=== PATIENT | male | born 1985 | race Caucasian/White ===

== ENCOUNTER 2019-08-04 09:36 | Emergency (ER) | payer SELFPAY ==
[2019-08-04 09:37] VITALS: BP 141/90; PULSE 76; RESP 16; TEMP 36.8; O2SAT 97; BMI 26.6
--- NOTE | 2019-08-04 09:48 | CT_ITS ---
STUDY: CT ABDOMEN AND PELVIS WITH CONTRAST REASON FOR EXAM: Male, 33 years old. Status post right inguinal hernia repair x1 month ago. Hematoma at surgical site. Right lower quadrant pain. RADIATION DOSAGE (If Supplied By Facility): CTDIvol = ( 16.31 ) mGy, DLP = ( 983.97 ) mGycm TECHNIQUE: Transaxial images were obtained from the dome of the diaphragm to the symphysis pubis with oral contrast. 100CC IV/Oral Isovue 300 was administered. Sagittal and coronal images were reconstructed. Individualized dose optimization techniques were used for this CT. COMPARISON: None. FINDINGS: Pectus excavatum deformity. The lung bases are normal. The visualized portions of the heart are within normal limits. Mild diffuse fatty infiltration of the liver. Normal gallbladder and extrahepatic biliary system. Borderline splenomegaly measuring 13 cm long. Normal pancreas. Normal bilateral adrenal glands. Normal right kidney. Normal left kidney. Normal visualized stomach. Normal small intestine. Normal colon. The appendix is visualized and appears normal. Normal abdominal aorta. Normal inferior vena cava. Very few tiny lymph nodes in the left retroperitoneum are benign reactive nodes. Normal urinary bladder. Irregular soft tissue density in the right inguinal region mixed with hypodense fluid may be postoperative changes. This is adjacent to hydrocele of the scrotal sac. Normal osseous structures. CT/Abdomen/Pelvis WITH Contrast IMPRESSION: 1. Mild diffuse hepatic steatosis. 2. Borderline splenomegaly measuring 13 cm long. 3. Very few tiny lymph nodes in the left retroperitoneum are benign reactive nodes. 4. Irregular soft tissue density mixed with hypodense fluid in the right groin area and adjacent to hydrocele of the scrotal sac. I am uncertain if these are purely postop changes. Comparison with previous CT of the pelvis will help determine interval changes. Electronically Signed: Richard Coats MD at 13:20 EDT , Service support ,
[2019-08-04] MEDS: 0.9% Normal Saline 1,000 ML 1000 ML IV (09:57)
[2019-08-04] MEDS: Morphine 4 MG/ML Syringe IV (09:57)
[2019-08-04] MEDS: Ondansetron 4 MG/2 ML Vial IV (09:58)
[2019-08-04 10:01] LABS: Absolute Lymphocyte Count 2.82 X10^3/uL (0.83-4.51); Absolute Neutrophil Count 3.4 X10^3/uL (2.0-7.7); Basophil# 0.07 X10^3/uL; Eosinophil# 0.21 X10^3/uL; Eosinophils% 2.9 % (0-5); Hematocrit 47.5 % (40-54); Hemoglobin 15.9 g/dL (13.0-16.5); Lymphocyte # 2.82 X10^3/ul (4.0); Lymphocyte % 38.6 % (19-41); Mean Corp Hgb Conc 33.5 g/dL (32-36); Mean Corpuscular Hgb 29.3 pg (27.0-32.0); Mean Corpuscular Volume 87.5 fL (80-94); Mean Platelet Vol. 9.5 fl (6.2-12.0); Monocyte# 0.72 X10^3/uL; Monocyte% 9.8 % (0-10); NRBC Flagged by Analyzer 0 % (0-5); Neutrophil # 3.43 X10^3/uL (2.7-7.7); Neutrophil % 46.9 % (47-70); Platelet Count 251 K/mm3 (150-450); RBC Distribution Width CV 13.2 % (11.6-14.6); RBC Distribution Width SD 42.1 fl (35.1-43.9); Red Blood Count 5.43 M/mm3 (4.6-6.2); White Blood Count 7.3 K/mm3 (4.4-11.0)
[2019-08-04 10:06] LABS: Mucous, Urine 0 SEEN /hpf (<or=2+); Red Blood Cells-Urine 0 SEEN /hpf (0-5); Squamous Epithelial Cells - UA 0 SEEN /hpf (0-5)
[2019-08-04 10:11] LABS: Color, Urine Yellow (Yellow); Glucose, Dipstick Normal (Normal); Ketone-Dipstick Negative (Negative); Leukocyte Esterase-Dipstick 25 /ul (Negative); Nitrite-Dipstick Negative (Negative); Occult Blood-Urine Negative /ul (Negative); Protein-Dipstick 15 mg/dl (Negative); Urine Bilirubin Dipstick Negative (Negative); Urine Clarity Cloudy (Clear); Urine Urobilinogen Normal (Normal)
[2019-08-04 10:16] LABS: White Blood Cells 0-5 SEEN /hpf (0-5)
[2019-08-04 10:17] LABS: Amorphous Sediment 1+; Bacteria 2+ /hpf (None Seen)
[2019-08-04 10:19] LABS: AST(SGOT) 29 U/L (15-37); Alanine Aminotransfer ALT/SGPT 44 U/L (16-61); Albumin, Serum 4.1 g/dL (3.2-5.0); Alkaline Phosphatase 102 U/L (45-117); Anion Gap 6 (5-15); BUN 15 mg/dL (7-18); Calcium,Total 8.3 mg/dL (8.5-10.1); Chloride 107 mmol/L (98-107); Creatinine, Serum 0.94 mg/dL (0.70-1.30); EST Glomerular Filtration Rate 97 mL/min (>60); Est Glom Filt Rate - Afr Amer 118 mL/min (>60); Estimated Creatinine Clearance 95.41 ml/min; Globulin 4.2 g/dL (2.2-4.2); Glucose 113 mg/dL (74-106); Lipase 231 U/L (73-393); Potassium 3.9 mmol/L (3.5-5.1); Protein, Total 8.3 g/dL (6.4-8.2); Sodium Level 139 mmol/L (136-145)
[2019-08-04 12:00] VITALS: BP 144/96; PULSE 61; RESP 16; O2SAT 96
--- NOTE | 2019-08-04 14:31 | ED.DCSUM_ITS ---
- ER Visit Summary Date of Service: 08/04/19 Chief Complaint: Pain History of Present Illness: The patient is a 33 M with right lower quadrant pain for days. Patient had a hernia repair just over a month ago by Dr. Palumbo. He was told he had a hematoma and that was why he was having some postoperative pain. Pain is worse with bowel movements, cough, and sneezing. Denies any other GI symptoms. Denies urinary symptoms. Physical Examination: Afebrile and vital signs unremarkable. Heart regular. Lungs clear. Right lower quadrant tender to palpation. No guarding or rebound. Skin appears normal. Test Results: CBC, CMP, lipase, urinalysis unremarkable. CT showed hepatic steatosis, splenomegaly, reactive lymph nodes, and a soft tissue density adjacent to the right scrotal sac. Emergency Department Course and Treatment: Patient was treated with fluids, morphine, and Zofran. CT and laboratory testing as above. Everything was fairly unremarkable except for the CT. This was reviewed with Dr. Luna. He felt this was likely a postoperative hematoma or part of the plug from the operation. He advised outpatient follow-up with Dr. Palumbo. Patient was given a short course of pain medicine and will call Tuesday for follow-up. Return for any new or worsening issues. Treatment Plan: As above Disposition: Discharge Impression: 1. Right lower quadrant pain This note was generated with [employer] dictation software. It may contain incorrect words, spelling, and punctuation that were not noted in review of the chart prior to signing ED Disposition - Plan for ED Patient: Referrals: Care Physician,No Primary [Primary Care Provider] -
--- NOTE | 2019-08-04 14:34 | DCINST.ED_ITS ---
ED Disposition - Plan for ED Patient: Instructions: ABDOMINAL PAIN, Unkown Cause, (Male) Prescriptions: Hydrocodone Bitart/Apap 5-325 [[place] 5MG-325MG] 1 tab PO Q6H PRN PRN 3 Days #12 tab PRN Reason: Pain Prescription Printed Referrals: Gabbi Palumbo MD [STAFF PHYSICIAN] -
[2019-08-04 15:27] VITALS: PULSE 76; RESP 16; O2SAT 98
== END 2019-08-04 15:27 | disposition home or self-care (01) ==
LOC: ED 10:17
PROVIDERS: Emergency Provider Emergency Medicine
DX: R10.31 Right lower quadrant pain (principal); K76.0 Fatty (change of) liver, not elsewhere classified; R16.1 Splenomegaly, not elsewhere classified; Z72.0 Tobacco use
CPT/HCPCS: 74177; 80053; 81001; 83690; 85025; 96361; 96374; 96375; 99283; J7030; Q9967; A4216; J2405

== ENCOUNTER 2023-12-30 06:31 | Day surgery (SDC) | payer BC, SELFPAY ==
[2023-12-27 10:57] LABS: Magnesium 2.4 mg/dL (1.6-2.6)
[2023-12-30] VITALS (8 sets, daily range): BP systolic 119–143; BP diastolic 70–96; PULSE 73–84; RESP 14–16; TEMP 36.2–36.7; O2SAT 94–100; BMI 29.0
--- OUTSIDE RECORDS SUMMARY | 2023-12-30 06:47 | XMS RPT_ITS | CCD ---
Author Name Unknown Address [id number] [place] [address] Organization [facility] Care Team Providers Care Senior Database Administrator Name Role Phone Denny Jaime Unavailable Unavailable Denny Jaime Unavailable Unavailable GREGORY MOTA Unavailable Unavailable PHYSICIAN, NONE Unavailable Unavailable Magali Urena Unavailable Unavailable Davy Vee Unavailable Unavailable Unavailable Davy Vee Unavailable Gaston Ayers Unavailable Unavailable Lionel Morales Unavailable Unavailable Dayo Davies Unavailable Unavailable Magali Coles Unavailable Davy Vee PA-C Primary Care Provider Mr. Davy Vee Primary Care Unavail able Nanda, Davysalima Hurtado Attending Unavail able Nanda, Mr. Rodriguezsalima Hurtado Referring Unavail able DEYA HOGUE., SETH Referring Unavailable DEYA HOGUE., SETH Attending Unavailable DAVY VEE Primary Care Unavailable Davy Vee PA-C Primary Care Provider DAVY VEE Primary Care Unavailable EDYA HOGUE., SETH Attending Unavailable DAVY VEE Primary Care Unavailable DEYA HOGUE., SETH Referring Unavailable DEYA ., SETH Admitting Unavailable DAVY VEE Primary Care Unavailable DEYA HOGUE., SETH Attending Unavailable DAVY VEE Primary Care Unavailable DAVY VEE Attending Unavailable Dr. Gaston Ayers Attending Unavaila ble Davy Vee Primary Care Unavailable Unavailable Primary Care Provider Unavailsalena e SELF Referring Unavailable CAMI FORDE Attending UnavailFLORENCIA Burns Attending Unavailable FLORENCIA GONZALEZ Primary Care Unavailable FLORENCIA GONZALEZ Admitting Unavailable FLORENCIA GONZALEZ Attending Unavailable FLORENCIA GONZALEZ Primary Care Unavailable FLORENCIA GONZALEZ Admitting Unavailable Medications Current Medications Medication Drug Class(es) Dates Sig (Normalized) Sig (Original) acetaminophen 32 mg/ml oral solution (3 sources) take 15 mg by mouth every four hours as needed for fever acetaminophen (TYLENOL) 160 mg/5 mL solution Take 15 mg/kg by mouth every 4 (four) hours as needed for fever . 0 Active ibuprofen 200 mg oral tablet (3 sources) Nonsteroidal Anti-inflammatory Drug take 1 tablet by mouth every six hours as needed for pain ibuprofen (ADVIL,MOTRIN) 200 MG tablet Take 1 (one) tablet (200 mg total) by mouth every 6 (six) hours as needed for pain . 0 Active methylPREDNISolone (1 source) Corticosteroid Start: 2 End: 2 methylPREDNISolone (MEDROL DOSEPACK) 4 mg tablet Follow package directions . 21 tablet 0 10/06/2022 10/12/2022 Active Completed/Discontinued Medications Medication Drug Class(es) Dates Sig (Normalized) Sig (Original) acetaminophen 325 mg / oxyCODONE hydrochloride 5 mg oral tablet (6 sources) Opioid Agonist Start: 07-04-2021 oxyCODONE-Acetamin ophen 5-325 MG Oral Tablet Quantity: 9 Refills: 0 Ordered: 04-Jul-2021 DO Start : 04-Jul-2021 Active Problems Active Problems Problem Classification Problem Date Documented Da te Episodic/Chronic Abdominal pain (2 sources) Abdominal pain 07-04-2021 Episodic Past or Other Problems Problem Classification Problem Date Documented Da te Episodic/Chronic E Codes: Fall (1 source) Fall (on) (from) unspecified stairs and steps, initial encounter; Translations: [Fall (on) (from) unspecified stairs and steps, init encntr] Onset: 09-29-2022 Episodic Other connective tissue disease (3 sources) Pain in left foot; Translations: [Pain in left foot] Onset: 09-29-2022 Episodic Other non-traumatic joint disorders (1 source) Pain in left ankle and joints of left foot; Translations: [Pain in left ankle] Onset: 09-29-2022 Episodic Sprains and strains (8 sources) Strain of muscle of upper limb; Translations: [Sprain of wrist, unspecified site] Onset: 09-29-2022 06-12-2021 Episodic Results Test Name Value Interpretation Reference Range Facil ity Vital Signs Date Time Vital Sign Value Performing Clinician Kendra bergman 10-20-2022 08:01-0500 Diastolic blood pressure 87 mm[Hg] Seth Morfin Jr., DPM Work Phone: [facility] 10-20-2022 08:01-0500 Heart rate 85 /min Seth Morfin Jr., DPM Work Phone: [facility] 10-20-2022 08:01-0500 Systolic blood pressure 133 mm[Hg] Seth Morfin Jr., DPM Work Phone: [facility] 10-20-2022 07:56-0500 Body temperature 98.1 [degF] Seth Morfin Jr., DPM Work Phone: [facility] 10-06-2022 08:33-0500 Diastolic blood pressure 99 mm[Hg] Seth Morfin Jr., DPM Work Phone: [facility] 10-06-2022 08:33-0500 Heart rate 76 /min Seth Morfin Jr., DPM Work Phone: [facility] 10-06-2022 08:33-0500 Systolic blood pressure 148 mm[Hg] Seth Morfin Jr., DPM Work Phone: [facility] 10-06-2022 08:26-0500 Body temperature 98.6 [degF] Seth Morfin Jr., DPM Work Phone: [facility] 09-30-2022 08:57-0500 Body height 165.1 cm Seth Morfin Jr., DPM Work Phone: [facility] 09-30-2022 08:57-0500 Body mass index (BMI) [Ratio] 29.79 kg/m2 Seth Morfin Jr., DPM Work Phone: [facility] 09-30-2022 08:57-0500 Body temperature 97.7 [degF] Seth Morfin Jr., DPM Work Phone: [facility] 09-30-2022 08:57-0500 Body weight 81.19 kg Seth Morfin Jr., DPM Work Phone: [facility] 09-30-2022 08:57-0500 Diastolic blood pressure 91 mm[Hg] Seth Morfin Jr., DPM Work Phone: [facility] Encounters Encounter Date Encounter Type Care Provider Facility Start: 11-18-2023 End: 11-18-2023 ambulatory [facility] Start: 10-20-2023 End: 10-20-2023 ambulatory [facility] Start: 10-20-2023 End: 10-20-2023 Encounter for general adult medical examination without abnormal findings [facility] Start: 05-30-2023 End: 05-30-2023 ambulatory SELF Facility:[facility] Start: 05-30-2023 End: 05-30-2023 Patient encounter procedure Cami Forde OD Work Phone: Optometry Procedures Date Procedure Procedure Detail Performing Clinician Start: 10-06-2022 NURSING COMMUNICATIO N - DO NOT USE IN ORDER SETS Seth Morfin DPM Work Phone: Laparoscopic cholecystectomy Davy Vee Work Phone: Plan of Treatment Date Care Activity Detail Author Start: 07-22-2023 Influenza vaccination INFLUENZA (#1) [facility] Start: 11-21-2022 DEPRESSION ASSESSMENT DEPRESSION ASSESSMENT [facility] Start: 10-20-2022 End: 10-20-2022 Patient encounter procedure 10/20/2022 Office Visit Podiatry Seth Morfin Jr., DPM [address] [place] [address] [facility] Start: 10-06-2022 End: 10-06-2022 Patient encounter procedure 10/06/2022 Office Visit Podiatry Seth Morfin Jr., DPM [address] [place] [address] [facility] Physician [facility] Start: 07-22-2022 Influenza vaccination Sequential Influenza Vaccine (#1) [facility] Start: 06-17-2022 FUV, Provider: Davy Vee, Status: Pen, Time: 9:30 AM FUV, Provider: Davy Vee, Status: Pen, Time: 9:30 AM [facility] Work Phone: Start: 06-17-2022 Patient encounter procedure Outpatient [facility] Start: 17-Jun-2022 9:30 Davy Vee Intent [facility] Start: 09-23-2021 COVID-19 Vaccine (3 - Booster for Moderna series) COVID-19 Vaccine (3 - Booster for Moderna series) [facility] Start: 09-23-2021 COVID-19 VACCINE (3 - Moderna series) COVID-19 VACCINE (3 - Moderna series) [facility] Start: 07-21-2021 Patient encounter procedure [facility] [place] Start: 07-21-2021 POV, Provider: Magali Coles, Status: Pen, Time: 8:45 AM POV, Provider: Magali Coles, Status: Pen, Time: 8:45 AM [facility] Work Phone: Start: 07-15-2021 FUV, Provider: Lionel Morales, Status: Pen, Time: 1:20 PM FUV, Provider: Lionel Morales, Status: Pen, Time: 1:20 PM [facility] [address] Work Phone: Start: 07-15-2021 Patient encounter [facility] Start: 07-04-2021 End: 07-05-2022 Sodium Chloride 0.9% Injectable Flush Peripheral Line ; via Peripheral LineVolume = 1.5 mL IntraVenous Flush Every 8 Hours and as Needed Start: 04-Jul-2021 End: 04-Jul-2022 Ordered: 04-Jul-2021 Gaston Ayers [facility] Start: 2018 LIPID SCREEN LIPID SCREEN [facility] Start: 2002 Urine microalbumin profile DTAP,TDAP,TD (1 - Tdap) [facility] Start: 2001 Hepatitis C screening Hepatitis C Screening [facility] Start: 2001 HEPATITIS C SCREENING HEPATITIS C SCREENING [facility] Start: 2001 HIV SCREENING HIV SCREENING [facility] Start: 1998 HIV screening HIV Screening [facility] Start: 1995 Depression screening using PHQ-9 (Patient Health Questionnaire 9) score Depression Screening (PHQ-2/9) [facility] Start: 1989 PNEUMOCOCCAL (1 - PCV) PNEUMOCOCCAL (1 - PCV) [facility] Start: 1989 Pneumococcal Vaccine: Ped or At-Risk (1 - PCV) Pneumococcal Vaccine: Ped or At-Risk (1 - PCV) [facility] Start: 1986 History and physical examination, annual for health maintenance Wellness Visit [facility] Start: 1983 HEPATITIS B (1 of 3 - 3-dose series) HEPATITIS B (1 of 3 - 3-dose series) [facility] Start: 1983 Tetanus vaccination Tetanus: Every 10yrs [facility] History of arthrosco pic procedure on shoulder History of arthroscopy of shoulder [facility] History of hernia repair History of hernia repair [facility] Payers Date Payer Category Payer Unknown 2023 Unknown [id number] 2018 Unknown [id number] 1983 Unknown [id number] [id number] 1983 Unknown [id number] 2.16. [id number] 1983 Unknown [id number] 2.16. [id number] 1983 Unknown [id number] 2.16. [id number] 1983 Unknown [id number] 2.16. [id number] 1983 Unknown [id number] 2.16. [id number] 1983 Unknown [id number] 2.16. [id number] 1983 Unknown [id number] 2.16.8 [id number] 1983 Unknown [id number] 2.16.8 [id number] 1983 Unknown [id number] 2.16.8 [id number] Unknown [id number] Social History Date Type Detail Facility [facility] Tobacco smoking consumption unknown [facility] Start: 10-28-2020 End: 05-30-2023 Current smoker Current smoker [facility] Start: 07-18-2021 End: 10-01-2022 Smokes tobacco daily [facility] History of tobacco use Cigarette Smoker [facility] Start: 1983 Sex Assigned At Not on file [facility] Start: 09-26-2022 End: 10-20-2022 Exposure to SARS-CoV-2 (event) Not sure [facility] Start: 05-30-2023 Tobacco smoking status NHIS Occasional tobacco smoker [facility] Start: 05-30-2023 Tobacco use and exposure Smokeless tobacco non-user [facility] Start: 05-30-2023 Alcohol intake Lifetime non-drinker (finding) [facility] Start: 06-20-2019 End: 10-28-2020 Alcohol Use Disorder Identification Test - Consumption [AUDIT-C] [facility] How often to you hav e a drink containing alcohol? Never [facility] Average Number of Drinks Not on file [facility] Start: 1985 Sex Assigned At Male [facility] Start: 06-15-2019 Gender identity Identifies as male gender (finding) [facility] Start: 06-15-2019 Sexual orientation Heterosexual (finding) [facility] Medical Equipment Procedure Code Equipment Code Equipment Origin al Text Equipment Identifier Dates Mesh 3dmax Large Polypropylene 6x4in Surgical Nonabsorbable Patch Preform - [id number] Start: 06-26-2019 Clinical Notes 06-11-2021 to 05-30-2023 Patient InstructionsCoCami terrell OD - 05/30/2023 2:49 PM EDTSeth Morfin Jr., DPM - 10/20/2022 8:28 AM ESTSeth Morfin Jr., DPM - 10/06/2022 8:58 AM ESTPatient Instructions Note Date & Type Note Facility 05-30-2023 Note HNO ID: [id number] Author: Cami Forde OD Service: ? Author Type: DOUBLE NEEDLE STITCHER Type: Progress Notes Filed: 05/30/2023 2:51 PM Note Text: ASSESSMENT/PLAN: 1. Myopia, bilateral - ICD9: 367.1, ICD10: H52.13 (primary diagnosis) 2. 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 Normal ocular health noted at this visit. Recommended yearly exams. Cami Forde, JO-ANN I have confirmed and edited as necessary the relevant ophthalmic history, ROS, and the neuro exam findings as obtained by others. [facility] 05-30-2023 Instructions Cami Forde, JO-ANN - 05/30/2023 2:50 PM EDT ASSESSMENT/PLAN: 1. Myopia, bilateral - ICD9: 367.1, ICD10: H52.13 (primary diagnosis) 2. 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 Normal ocular health noted at this visit. Recommended yearly exams. documented in this encounter [facility] 05-30-2023 History of Present illness Narrative ASSESSMENT/PLAN: 1. Myopia, bilateral - ICD9: 367.1, ICD10: H52.13 (primary diagnosis) 2. 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 Normal ocular health noted at this visit. Recommended yearly exams. Cami Forde, OD I have confirmed and edited as necessary the relevant ophthalmic history, ROS, and the neuro exam findings as obtained by others. documented in this encounter [facility] 10-20-2022 History of Present illness Narrative Ankle sprain. Patient is a pleasant 37-year-old male following up today from his ankle sprain injury. States in the last few weeks he is done excellent. Did great with his Medrol Dosepak his ankle is no longer painful. Today does complain of soreness to the TN and dorsal midfoot. States it is painful when his shoes are pressing on his joint otherwise not painful while no pressure was present. Physical Vascular: DP PT pulses are easily palpable 2-4. CFT is fair no edema. Derm: No erythema no open wounds no ulcers no rashes. Neuro: Light touch is normal Babinski's is normal. Musculoskeletal: Does have some pain to the TN joint and navicular cuneiform joint past the first ray. No hypermobility of the site pain is with compression otherwise not present. No catching or clicking. No ATFL pain today ankle subtalar is full and pain-free. Assessment and plan: Patient is a pleasant 37-year-old male with substantially improved and healed ankle sprain and chronic midfoot arthritis. -During his ankle sprain, nothing else to do as this is healed. Regarding his midfoot arthritis, the Including steroid injection with dexamethasone would like to at least hold off. We recommend he first get laces across that joint to try to decrease the burden and the pressure. Follow-up if no better for dorsal midfoot injection. documented in this encounter [facility] 10-06-2022 History of Present illness Narrative HPI Chief Complaint Patient presents with Foot Injury Referral from Dr. Lara for left foot sprain. Pt states he went down stairs to quickly. Pt states he feels pain all over and describes it being an electric feeling. Pt states pain is primarily medial top side of foot/ ankle area. Pt states no injury related that he sometimes has to walk with left toes curled due to pain along bottom of foot and has lump on top of left foot. Patient shira 37-year-old male who comes in today with a 1 week history of left foot trauma. States looked at home down 1 step twisting tweaking his left foot. Has been quite sore since then despite taking Advil and Tylenol. He was in an ankle brace to try to stabilize his ankle and also shoe to assist. States that it still fairly sore painful interval. 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 Past Medical History: Diagnosis Date Left wrist injury Past Surgical History: Procedure Laterality Date CHOLECYSTECTOMY HERNIA REPAIR ROTATOR CUFF REPAIR Social History Socioeconomic History Marital status: Single Tobacco Use Smoking status: Every Day Types: Cigarettes Review of Systems Constitutional: Negative for chills and fever. Respiratory: Negative for shortness of breath and wheezing. Cardiovascular: Negative for chest pain and palpitations. Gastrointestinal: Negative for diarrhea and vomiting. Musculoskeletal: Positive for gait problem and joint swelling. Skin: Negative for wound. Physical Exam -Patient is a shira 37-year-old who comes in today with foot trauma. Patient is AOx3. Linear thought process. Vascular: DP PT pulses are easily palpable 2 out of 4. CFT is normal mild midfoot edema. Derm: No erythema no open wounds no rashes no deep nodules. Neuro: Light touch is normal Babinski's is normal. Musculoskeletal: Does have pain globally to the medial aspect of his midfoot from his Lisfranc's joint proximally to his TN joint. Power is good to his plantar flexors dorsal inverters and everters. Updated x-rays taken, no obvious fractures dislocations or subluxations. Impression/Plan Problem List Items Addressed This Visit None Visit Diagnoses Sprain of left foot, initial encounter - Primary Relevant Orders Cam Walker Patient is a shira 37-year-old male with left midfoot sprain Can start an oral Medrol Dosepak 4 mg tomorrow and cam boot for ambulation. The cam boot is medically necessary for the next 2-4 weeks. Patient was ambulatory prior to this incident and is expected to regain ambulatory status after complete healing of injury. -At work, restrictions other than wearing his cam boot. Follow-up in 2 to 4 weeks evaluate. -low medical complexity decision documented in this encounter [facility] 10-06-2022 Instructions Seth Morfin Jr., DPM - 10/06/2022 8:55 AM EST F/u 2 weeks -Needs to wear cam boot during the day at work at least the next 2 weeks. Other than wearing the boot at work, no restrictions present. documented in this encounter [facility] 10-01-2022 History of Present illness Narrative Referral from , Davy Vee. Sprain of left foot. Patient tripped fell a couple steps backward. Twisting/rolling ankle. Patient was given crutches that they did not use. Complains of discomfort and discoloration on top of left foot. Patient states if feels like pins and needles shooting up the foot with ambulation. Patient alternating tylenol and ibuprofen. X-rays taken at ED 09/29/2022. . Patient given light duty note for work. Told to continue with brace, cane or crutches. Ice and elevate when possible. documented in this encounter [facility] 07-09-2021 History of Present illness Narrative Mr. Duarte is a 35-year-old male seen in postoperative follow-up from a laparoscopic cholecystectomy on 07/09/2021. He had a small umbilical port site hematoma. He has been having some persistent pain and a little bit of bloody drainage from that site, particularly when he went fishing over the weekend. He was evaluated for this in the emergency department 2 days ago. He has no fever, or redness at this incision and no sign of infection. He is otherwise doing well. The right upper quadrant pain that he was having preoperatively is now completely resolved. He has some loose bowel movements, but this is unchanged from preop. [facility] Work Phone: 06-28-2021 History of Present illness Narrative Patient is a pleasant 35-year-old wjiyq-hstm-vvztqsif male presenting for follow-up of left wrist injury. Initial visit with hi approximately 3 weeks ago, injury occurred approximately 5 weeks ago. Injury occurred after falling off a chair trimming hedges, landing on outstretched hand. X-rays negative in urgent care, he was treated with removable wrist splint. At our initial visit he was having some ongoing discomfort at the ulnar aspect of his wrist with palpable click, there was concern for an acute TFCC injury. We opted for rigid immobilization in a short arm fracture brace for the past 3 weeks. He has been compliant with this. He states that his ulnar wrist pain is resolved. He is still having some clicking but it is not bothersome. He has developed some new onset numbness over the dorsal aspect of his thumb which is intermittent in nature, no history of similar numbness in the past. [facility] [address] Work Phone: 06-27-2021 History of Present illness Narrative Patient is a pleasant 35-year-old [id number]-olptpbgk male presenting for follow-up of left wrist injury. Initial visit with hi approximately 3 weeks ago, injury occurred approximately 5 weeks ago. Injury occurred after falling off a chair trimming hedges, landing on outstretched hand. X-rays negative in urgent care, he was treated with removable wrist splint. At our initial visit he was having some ongoing discomfort at the ulnar aspect of his wrist with palpable click, there was concern for an acute TFCC injury. We opted for rigid immobilization in a short arm fracture brace for the past 3 weeks. He has been compliant with this. He states that his ulnar wrist pain is resolved. He is still having some clicking but it is not bothersome. He has developed some new onset numbness over the dorsal aspect of his thumb which is intermittent in nature, no history of similar numbness in the past. [facility] [address] Work Phone: 06-11-2021 History of Present illness Narrative Patient is a pleasant 35-year-old ocddz-hbep-zmgttpvh male presenting for evaluation of left wrist injury. Injury occurred approximately 2 weeks ago after falling off a chair while trimming hedges, landed on outstretched left hand/wrist, says that his wrist was ulnar deviated in the process. Had acute onset of pain following this, was seen in urgent care where x-rays of the wrist were obtained which were negative for fracture, was placed in a removable wrist splint. He did follow-up with a new PCP last week, Davy Vee, who placed referral to our office for further evaluation. He denies any significant swelling of the wrist now or immediately following the injury, pain most focal to the ulnar aspect of his wrist. He says that he has been wearing the splint since the injury occurred, has not noticed any significant improvement in symptoms. He says that range of motion is okay, minimal pain with flexion and extension but he has pain in popping/clicking of his wrist with ulnar and radial deviation with more notable discomfort. No numbness or tingling. No prior wrist problems. [facility] [address] Work Phone: [facility] Sprain of left foot, initial encounter- Primary Primary osteoarthritis of left foot documented in this encounter [facility] note* Diagnosis Myopia, bilateral- Primary Myopia Regular astigmatism, bilateral documented in this encounter [facility] Summary Purpose Family History No Family History Records FoundUnknown Family Member Name Dates Details Family history of hypertensi on: Mother(V17.49, Z82.49) Status:Active Unknown Family Member Name Dates Details Family history of hypertensi on: Mother(V17.49, Z82.49) Status:Active Unknown Family Member Name Dates Details Family history of hypertensi on: Mother(V17.49, Z82.49) Status:Active Unknown Family Member Name Dates Details Family history of hypertensi on: Mother(V17.49, Z82.49) Status:Active Unknown Family Member Name Dates Details Family history of hypertensi on: Mother(V17.49, Z82.49) Status:Active Advance Directives No Advanced Directives Records FoundNo Advanced Directives Records FoundNo Advanced Directives Records FoundNo Advanced Directives Records FoundNo Advanced Directives Records FoundNo Advanced Directives Records FoundNo Advanced Directives Records FoundNo Advanced Directives Records FoundNo Advanced Directives Records FoundNo Advanced Directives Records Found Chief Complaint PT HERE FOR LEFT WRIST INJURY. STATES FELL APPROX 2 WKS AGO LANDING ON WRIST. PAIN AND SWELLING. WEARING BRACE. XRAYS BEFORE. REFERRED BY DAVY VEE.3 WK F/U L WRIST INJURY3 WK F/U L WRIST INJURYs/p laparoscopic cholecystectomy Reason for Referral * Umbilical hemorrhage Medications Administered Section Inactive Administered Medications - up to 3 most recent administrations Medication Order MAR Action Action Date Dose Rate Site tropicamide 1 % 1 Drop (MYDRIACYL) 1 Drop, BOTH EYES, ONCE, 1 dose, On 05/30/23 at 1500, FOR THE EYE Given 05/30/2023 3:00 PM EDT 1 Drop Additional Source Comments (unrecognized sect ion and content) No Status Records FoundNo Status Records FoundNo Status Records FoundNo Status Records FoundNo Status Records FoundNo Status Records FoundNo Status Records FoundNo Status Records FoundNo Status Records FoundNo Status Records Found INFORMATION SOURCE (unrecogn ized section and content) DATE CREATED AUTHOR AUTHOR'S ORGANIZ ATION 09/26/2018 [facility] ([place]) DATE CREATED AUTHOR AUTHOR'S ORGANIZ ATION 08/24/2019 [facility] DATE CREATED AUTHOR AUTHOR'S ORGANIZ ATION 10/01/2022 [facility] DATE CREATED AUTHOR AUTHOR'S ORGANIZ ATION 10/01/2022 [facility] DATE CREATED AUTHOR AUTHOR'S ORGANIZ ATION 10/06/2022 [facility] DATE CREATED AUTHOR AUTHOR'S ORGANIZ ATION 10/20/2022 [facility] DATE CREATED AUTHOR AUTHOR'S ORGANIZ ATION 02/22/2023 [facility] DATE CREATED AUTHOR AUTHOR'S ORGANIZ ATION 05/31/2023 [facility] DATE CREATED AUTHOR AUTHOR'S ORGANIZ ATION 11/22/2023 Zack Robles [facility] <item><item><item><item> Privacy Markings (unrecogniz ed section and content) Section Author: Lizette Cohen PROHIBITION ON REDISCLOSURE OF CONFIDENTIAL INFORMATION This notice accompanies a disclosure of information concerning a client made to you with the consent of such client. Section Author: Lizette Cohen PROHIBITION ON REDISCLOSURE OF CONFIDENTIAL INFORMATION This notice accompanies a disclosure of information concerning a client made to you with the consent of such client. Section Author: Lizette Cohen PROHIBITION ON REDISCLOSURE OF CONFIDENTIAL INFORMATION This notice accompanies a disclosure of information concerning a client made to you with the consent of such client. Section Author: Lizette Cohen PROHIBITION ON REDISCLOSURE OF CONFIDENTIAL INFORMATION This notice accompanies a disclosure of information concerning a client made to you with the consent of such client. Care Teams (unrecognized sec tion and content) Senior Database Administrator Relationship Specialty Start Date End Date Newtammi Davy Hurtado PA-C [address] [place] [address] PCP - General Physician Manager [employer] Collections 10/01/22 Senior Database Administrator Relationship Specialty Start Date End Date Ravindratammi Davy Hurtado PA-C [address] [place] [address] PCP - General Physician Manager [employer] 10/01/22 Reason for Visit (unrecogniz ed section and content) Reason Comments Follow-up Follow up referral l eft foot sprain. States it is feeling better but lump is causing him problems. Reason Comments Yearly Exam Source Comments (unrecognize d section and content) In the event this informatio n is protected by the Federal Confidentiality of Alcohol and Drug Abuse Patient Records regulations: The Federal rules restrict any use of the information to criminally investigate or prosecute any alcohol or drug abuse patient.[facility] FOR RECORDS PERTAINING TO PATIENTS WHO ARE OR HAVE BEEN ENROLLED IN A CHEMICAL DEPENDENCY/SUBSTANCEABUSE PROGRAM, SOME INFORMATION MAY BE OMITTED. This clinical summary was aggregated from multiple sources. Caution should be exercised in using it in the provision of clinical care. This summary normalizes information from multiple sources, and as a consequence, information in this document may materially change the coding, format and clinical context of patient data. In addition, data may be omitted in some cases. CLINICAL DECISIONS SHOULD BE BASED ON THE PRIMARY CLINICAL RECORDS. [employer] provides no warranty or guarantee of the accuracy or completeness of information in this document.
[2023-12-30 07:24] LABS: Bedside Glucose 93 mg/dL (74-106)
[2023-12-30] MEDS: Lactated Ringers 1,000 ML 15 ML IV ×2 (07:24→11:50)
[2023-12-30] MEDS: Magnesium 1 GM over 15 mins IV (07:24)
[2023-12-30] MEDS: Gabapentin 600 MG Tablet PO (07:29)
[2023-12-30] MEDS: Acetaminophen 500 MG Tablet 1000 MG PO (07:29)
--- NOTE | 2023-12-30 08:46 | PCM.OPRPT ---
Problems Associated Problem List Diagnoses (1) Osteochondritis dissecans of left foot: (2) Pain in left foot: (3) Short Achilles tendon of left lower extremity: (4) Other acute postprocedural pain: (5) Achilles tendinitis, left leg: Report of Operation Date of Procedure: 12/30/23 Pre-Operative Diagnosis: 1. Osteochondral dissecans, first metatarsal, left foot 2. Short Achilles tendon, left lower extremity 3. Pain, left foot Post-Operative Diagnosis: 1. Osteochondral dissecans, first metatarsal, left foot 2. Short Achilles tendon, left lower extremity 3. Pain, left foot Surgery/Procedure Performed:: 1. Partial excision of bone, first metatarsal, left foot 2. [place] of calcaneal bone graft, left foot 3. Endoscopic gastroc recession, left lower extremity 4. [place] of bone marrow aspirate concentrate, left lower extremity Description of Surgical Findings:: 1. Evidence of soft bone defect consistent with osteochondral dissecans to the lateral aspect of the first metatarsal head, left foot 2. Incidental finding of loss of articular cartilage appreciated to the first metatarsal head which was repaired via microfracturing with backfilling of bio cartilage, PRP and autograft. 3. Release of gastroc anemias aponeurosis allowed for a better range of motion to the left lower extremity ankle. Surgeon: Keyon Bhardwaj agent contract clerk: Julio Cullen Type of Anesthesia: General/Regional Anesthesiologist: Que Blank Special Medications: Per anesthesia Specimen's removed: None Drains: None Estimated Blood Loss (mL): 15 mL Fluids Replaced: Per anesthesia Description of Procedure: Indications For Operation: Mr. Cordova is a 38-year-old male who was admitted to [facility] for elective left lower extremity surgery secondary to pain to the left foot and ankle. Patient was seen in private office where we had undergone conservative treatment for pain to the first metatarsophalangeal joint of the left lower extremity. After failure conservative treatment the patient underwent MRI which showed evidence of an OCD to the lateral aspect of the first metatarsal head. MRI and physical exam findings were consistent with the patient's presentation. Patient was seen in private office for surgical consultation with all risk and benefits discussed with the patient in great detail, thus moving forward with elective foot and ankle surgery to left lower extremity. Due to the size of the patient's OCD and pain to the left lower extremity edema necessary at this time to take the patient to the operating room to perform the above procedure to help heal the patient's bone and relieve his constant pain. The nature of the problem, anticipated procedures, postop recovery/convalences and risk/complications include but not limited to infection, wound healing complications, digital amputation, hypertrophic scarring, numbness, tingling, chronic pain, CRPS, over and under correction, recurrence of deformity, DVT and or PE and the need for further surgery have been discussed in great detail with the patient. All questions have been answered to the patient's satisfaction. There are no guarantees given as to the outcome of the procedure. Description of Procedure: Under mild sedation, the patient was brought into the operating room and placed on the operating table in supine position. Once the patient was under general anesthesia with laryngeal mask airway. The patient received a left lower extremity popliteal block by anesthesia, please see anesthesia note for further detail. Next, a well-padded thigh tourniquet was applied to the left lower extremity. Next, the left lower extremity was prepped and draped in normal aseptic manner. Next, a timeout was then undertaken verifying the correct patient, extremity, visibility of preoperative markings, availability of the equipment. Procedure #1, bone marrow aspirate concentrate, left lower extremity Next attention was directed to the left lower extremity. Using a Jamshidi needle, the needle was inserted to the distal medial aspect of the tibia. Next once inserted using the Arthrex Tang system 20 cc of bone marrow aspirate was removed and passed the back table to be spun down. A second attempt to remove more bone marrow aspirate was moved to the calcaneus since the distal tibia location was causing a hematoma in the Jamshidi needle. Next, attention was directed to the lateral aspect of the calcaneus, the Jamshidi needle was inserted to the lateral calcaneus without incident. An additional 30 cc of bone marrow aspirate was removed from the left calcaneus without incident. The 30 cc of bone marrow aspirate concentrate was passed the back table to be sent off to the rep to be spun down for bone marrow aspirate and PRP. Procedure #2, harvest of calcaneal bone graft, left foot Next, attention was directed to the left lower extremity. Using a 4 inch Esmarch, left lower extremity was exsanguinated and elevated to 60 degrees for 1 minute.Next, attention was directed to the left lower extermity. Next, attention was directed to the lateral aspect of the left calcaneus. Using a #15 blade, a full-thickness incision, approximately 1 cm, was made down to bone without incident. Continued blunt dissection was carried out with curved hemostats. Using the Arthrex 6 mm osteoagar, calcaneal bone harvest less than than 5 cc was made, then removed from the calcaneus and passed the back table to be used later in the case, for the repair of the OCD of the first metatarsal procedure. The incision was flushed with copious arnaldo of normal saline. Procedure #3 endoscopic gastroc recession, left lower extremity A silfverskiold test was performed on the operating table. There was evidence of a positive Silfverskiold test for gastrocnemius equinus. Next, attention was directed to the aponeurosis of the gastrocnemius muscle. A small stab incision was placed approximately 2 to 3 cm from the gastroc insertion. Using the Arthrex lead vulcanizing operator the aponeurosis was bow strong and then advanced to the lateral aspect of the left lower extremity. Once tenting of the skin was identified a small stab incision was made with a 15 blade laterally. Using the Arthrex obturator and cannula, it was advanced through both incisions. Using the Arthrex mini scope there showed evidence of the aponeurosis of the gastrocnemius muscle. Using the rasp the muscle fibers/Sub Q were removed from the aponeurosis tissue. Using the Arthrex mini scope and hook blade, careful incision across the aponeurosis was made half laterally then half medially until released. After release of the aponeurosis the ankle was put through range of motion with the knee extended as well as flexed and showed to be increased past 90 in both positions. Both incisions were flushed with copious arnaldo of warm saline. Procedure #4, partial excision of bone, OCD repair, first metatarsal, left foot The next, attention was directed to the level of the first metatarsal phalangeal joint of the left foot. Using large C arm fluoroscopy, incision placement was marked out laterally to the first metatarsal phalangeal joint of the left foot. Using a sterile skin marker the incision placement was made just lateral to the extensor hallucis longus tendon of the first metatarsal phalangeal joint. Using a #15 blade, a partial skin incision was made down to subcutaneous tissue without incident. All crossing veins were cauterized with Bovie. Using a wet Ray-Gayle, the deep fascia was removed and lifted off from the subcutaneous tissue. Metzenbaum scissors were used for continued blunt dissection down to the level of the joint capsule. Next, using a #15 blade, a full-thickness incision over the first metatarsal phalangeal joint capsule was made, care was to retract the extensor hallucis longus tendon. Continued sharp dissection was carried down to the lateral aspect of the first metatarsophalangeal joint distal and proximally. No to be noted that there showed evidence of loss of approximately 20-30% of the articular cartilage of the first metatarsal head. Using TPX and a 0.062 K wire, the absent articular cartilage was fenestrated to allow regrowth of the articular cartilage. The area was flushed with copious arnaldo of normal saline. Next, attention was directed to the lateral aspect of the first metatarsal head that showed evidence of softening as well as OCD in the first metatarsal. Using a small curette, the soft bone at the level of the OCD to the lateral aspect of the first metatarsal head was partially excised and cored out. There showed evidence of a 0.5 x 0.5 x 0.5 cm defect. The incision was flushed with copious normal saline. The area was then dried. Using a combination of Arthrex bio cartilage, PRP, bone marrow aspirate concentrate and autograft from the heel, a slurry was made to be backfilled in all deficits to the first metatarsal head and lateral side. The concentrate was covered with fibrin glue. Once the fibrin glue showed to be gelatinous, the left lower extremity tourniquet was deflated and instant reperfusion was noted to the left lower extremity. Next all incisions except the first metatarsophalangeal joint incision was flushed with copious normal saline. The proximal medial lateral calf incisions were closed with 3-0 nylon in simple interrupted suture technique. The distal medial tibial incision was closed with 3-0 nylon in simple interrupted suture technique. The lateral calcaneus incision was closed with 3-0 nylon in simple interrupted suture technique. The incision over the first metatarsophalangeal joint was closed in layers, the capsule layer was closed with 3-0 Vicryl in running locking suture technique. The subcutaneous layer was closed with 3-0 Vicryl in running suture technique. The skin was reapproximated and closed with 3-0 nylon in simple interrupted suture technique. The left lower extremities were cleaned and patted dry. All incisions were covered with Betadine soaked Adaptic, 4 x 4's, dry sterile dressing and a double layer Vernon AO compression splint was applied to left lower extremity at 90 degrees. The patient tolerated the procedure and anesthesia well and apparent satisfactory condition and was transported to the PACU for further monitoring prior to discharge home. Vital signs stable and vascular status intact to all digits bilateral. Post Operative Plan: Weightbearing: Nonweightbearing to left lower extremity. Full weightbearing to the right lower extremity. Nonweightbearing to recess with crutches and/or knee scooter. Antibiotics: 2 g cefazolin through the IV DVT Prophylaxis: Aspirin 81 mg [place]ill: None Dressing: Betadine soaked Adaptic, dry sterile dressing and a double layer Vernon compression AO splint at 90 degrees. X-Rays: Post-operative films taken on the operating room. Pain Medication: Percocet 5/325, Flexeril 10 mg 3 times daily Follow-up: Patient will follow-up with Dr. Bhardwaj in private office 1 week post discharge. Grafts/Implants Used: Bio cartilage, PRP, autograft from calcaneus Complications None Admit VTE Documentation VTE Present on Admission: No VTE Mechan Device Prophylaxis: SCD's VTE Pharm Prophylaxis ordered?: Yes
[2023-12-30] MEDS: Cefazolin 2 GM in 0.9% Normal Saline (100mL Bag) 100 ML IV (09:00)
--- NOTE | 2023-12-30 09:15 | RAD_ITS ---
STUDY: X-RAY - LEFT FOOT CLINICAL: Male, 38 years old. Intraoperative digital documentation views of the first metatarsal partial excision. TECHNIQUE: 3 intraoperative digital view(s) of the foot. COMPARISON: None. FINDINGS: 3 intraoperative digital documentation. It is show localization device projected over the head of the first metatarsal. RAD/Foot min 3 Views IMPRESSION: Intraoperative digital documentation views as described. Electronically Signed: Jordan Mcintosh MD at 10:32 EST ,
[2023-12-30] MEDS: Oxycodone/Apap 5/325 Tablet PO (12:22)
== END 2023-12-30 12:30 | disposition home or self-care (01) ==
LOC: SDC 06:36 → AC 06:36
PROVIDERS: PCP Nurse Practitioner Family; Referring Provider Podiatrist Foot & Ankle Surgery; Visit Provider Podiatrist Foot & Ankle Surgery
PROC: (CPT 29999; principal; 2023-12-30 08:45)
DX: M93.272 Osteochondritis dissecans, left ankle and joints of left foot (principal); M76.62 Achilles tendinitis, left leg; M67.02 Short Achilles tendon (acquired), left ankle; I10 Essential (primary) hypertension; E78.5 Hyperlipidemia, unspecified; K21.9 Gastro-esophageal reflux disease without esophagitis; E66.9 Obesity, unspecified; F17.290 Nicotine dependence, other tobacco product, uncomplicated; F17.210 Nicotine dependence, cigarettes, uncomplicated; Z79.899 Other long term (current) drug therapy
CPT/HCPCS: 20900; 28899; 29999; 20999; 64445; 36415; 73630; 76000; 82962; 83735; 87077; 87081; 93005; J7120; J2405; J3475

== ENCOUNTER → 2024-02-15 | Outpatient (CLI) | payer BC, SELFPAY | END | disposition home or self-care (01) | PROVIDERS: PCP Nurse Practitioner Family; Visit Provider Podiatrist | DX: L97.522 Non-pressure chronic ulcer of other part of left foot with fat layer exposed (principal) | CPT/HCPCS: 87070; 87075; 87077; 87186; 87205 ==

== ENCOUNTER 2024-02-18 12:34 | Emergency (ER) | payer BC, SELFPAY ==
[2024-02-18 12:35] VITALS: BP 158/103; PULSE 90; RESP 16; TEMP 36.3; O2SAT 97; BMI 30.7
--- NOTE | 2024-02-18 13:30 | ED.VIS.LOWEX ---
HPI History of Present Illness Chief Complaint: Lower Extremity Injury Informant: patient Narrative Narrative: Patient has had right Achilles pain for the past 2 months. Has been following with podiatry, they think he has a partial tear and he is scheduled for an MRI within the next week or so, he had an Achilles tear on his left that was operated on in November and this has been bothering him ever since, unknown injury. Podiatry has been prescribing the medication. He is out of it and is needing more, as he states he is in a lot of pain. He states that podiatry does not want to prescribe him narcotics anymore until at least they get an MRI to verify what is going on, and so the patient presents here asking for oxycodone for pain. He denies any other new issues/symptoms. [facility] Medical History Arthritis Gastric reflux High cholesterol Hypertension Loose, teeth Migraine headache Smoker Wears glasses Home Medications atorvastatin 10 mg tablet 10 mg PO 1500 12/26/23 [History Last Taken 12/29/23] citalopram 10 mg tablet 10 mg PO 1500 12/26/23 [History Last Taken 12/29/23] diclofenac sodium 50 mg tablet,delayed release 50 mg PO 1500 12/26/23 [History Last Taken 12/29/23] famotidine 20 mg tablet 20 mg PO 1500 12/26/23 [History Last Taken 12/29/23] fluticasone propionate 50 mcg/actuation nasal spray,suspension 2 spray intranasal 149912/26/23 [History Last Taken Unknown] hydrochlorothiazide 25 mg tablet 25 mg PO 1500 12/26/23 [History Last Taken 12/29/23] lisinopril 20 mg tablet 20 mg PO 1500 12/26/23 [History Last Taken 12/29/23] meloxicam 15 mg tablet 15 mg PO 1500 12/26/23 [History Last Taken 12/29/23] omeprazole 40 mg capsule,delayed release 40 mg PO DAILY 12/26/23 [History Last Taken 12/29/23] topiramate 200 mg tablet 200 mg PO 1500 12/26/23 [History Last Taken 12/29/23] ascorbic acid (vitamin C) 1,000 mg tablet (Vitamin C) 1 g PO DAILY 90 days #90 tabs 12/30/23 [Rx Last Taken Unknown] aspirin 81 mg tablet,delayed release 81 mg PO DAILY 30 days #30 tabs 12/30/23 [Rx Last Taken Unknown] calcium carbonate 500 mg-vitamin D3 15 mcg (600 unit) tablet (Os-Ramone 500 + D3) 1 tab PO DAILY 90 days #90 tabs 12/30/23 [Rx Last Taken Unknown] cyclobenzaprine 10 mg tablet 10 mg PO TID muscle spasm 7 days #21 tabs 12/30/23 [Rx Last Taken Unknown] docusate sodium 100 mg capsule (Colace) 100 mg PO DAILY 10 days #10 caps 12/30/23 [Rx Last Taken Unknown] oxycodone-acetaminophen 5 mg-325 mg tablet (Endocet) 1 tab PO Q6H pain 7 days #28 tabs 12/30/23 [Rx Last Taken Unknown] cyclobenzaprine 10 mg tablet 10 mg PO TID muscle spasm 7 days #21 tabs 01/05/24 [Rx Last Taken Unknown] oxycodone-acetaminophen 5 mg-325 mg tablet (Endocet) 1 tab PO Q6H PRN pain 7 days #28 tabs 01/05/24 [Rx Last Taken Unknown] oxycodone-acetaminophen 5 mg-325 mg tablet (Endocet) 1 tab PO Q6H 7 days #28 tabs 01/13/24 [Rx Last Taken Unknown] oxycodone-acetaminophen 5 mg-325 mg tablet 1 tab PO Q6H PRN PRN Pain 3 days #12 TABLETS 02/18/24 [Rx Last Taken Unknown] Allergy/AdvReac Type Severity Reaction Status Date / Time No Known Allergies Allergy Verified 02/18/24 12:36 Surgical History (Updated 12/26/23 @ 12:25 by Judi Sanz) History of cholecystectomy History of hernia surgery History of repair of left rotator cuff Social History Smoking Status: Current every day smoker tobacco type: cigarettes ROS ROS ED Constitutional Constitutional ED: Denies chills or fever(s) Musculoskeletal Musculoskeletal: Reports extremity pain; Denies neck pain Integumentary Denies Abrasions, rash or wounds Neurologic Neurologic: Denies paresthesias or weakness EXAM Physical Exam Const Vital Signs: 02/18/24 12:35 Temperature 97.4 F L Temperature Source Temporal Pulse Rate 90 Respiratory Rate 16 Blood Pressure 158/103 H Blood Pressure Mean 121 Pulse Ox 97 Oxygen Delivery Method Room Air Positive well nourished and well developed General Appearance ED: well developed and NAD Neck full ROM and supple Back/Spine normal ROM and normal to inspection Extremity Extremity Narrative: There is some focal swelling within the right Achilles tendon the overlying skin is normal-appearing, the swollen area is tender does not appear to be an abscess and it is not fluctuant, he has full range of motion with regards to plantarflexion/dorsiflexion and limited at extremes due to pain. Neuro oriented x3, no focal motor deficits and no sensory deficits noted Sensorium / Orientation: alert Psych mental status grossly normal and thought process normal Skin no wounds Rashes: no rashes MDM MDM MDM Narrative Medical decision making narrative: I reviewed the patient's O[facility] report. He indeed has had 1 narcotic prescriber for the past several months, with him 2 prescriptions in the last month and neither 1 is active right now. I advised the patient that out of the ER, we typically do not treat chronic pain. Since this is only the first time he has asked for these I am given him a one-time dose but advised regarding the possibility of narcotic addiction and also advised regarding the fact that asking for further narcotics out of the ER may result in a professional denial. Discharge Plan Triage Chief Complaint: Lower Extremity Injury ED Provider: Perry Almeida Dx/Rx/DC Orders Clinical Impression: Achilles tendinitis, right leg Instructions: ED Tendonitis Prescriptions: New oxycodone-acetaminophen [oxycodone-acetaminophen] 5-325 mg tablet 1 tab PO Q6H PRN PRN (Reason: Pain) 3 Days Qty: 12 0RF No Action lisinopril 20 mg tablet 20 mg PO 1500 hydrochlorothiazide 25 mg tablet 25 mg PO 1500 atorvastatin 10 mg tablet 10 mg PO 1500 citalopram 10 mg tablet 10 mg PO 1500 diclofenac sodium 50 mg tablet,delayed release (DR/EC) 50 mg PO 1500 famotidine 20 mg tablet 20 mg PO 1500 fluticasone propionate 50 mcg/actuation spray,suspension 2 spray INTRANASAL 1500 meloxicam 15 mg tablet 15 mg PO 1500 omeprazole 40 mg capsule,delayed release(DR/EC) 40 mg PO DAILY topiramate 200 mg tablet 200 mg PO 1500 oxycodone-acetaminophen [Endocet] 5-325 mg tablet 1 tab PO Q6H 7 Days Qty: 28 0RF aspirin 81 mg tablet,delayed release (DR/EC) 81 mg PO DAILY 30 Days Qty: 30 0RF docusate sodium [Colace] 100 mg capsule 100 mg PO DAILY 10 Days Qty: 10 0RF cyclobenzaprine 10 mg tablet 10 mg PO TID 7 Days Qty: 21 0RF calcium carbonate-vitamin D3 [Os-Ramone 500 + D3] 500 mg-15 mcg (600 unit) tablet 1 tab PO DAILY 90 Days Qty: 90 0RF ascorbic acid (vitamin C) [Vitamin C] 1,000 mg tablet 1 g PO DAILY 90 Days Qty: 90 0RF oxycodone-acetaminophen [Endocet] 5-325 mg tablet 1 tab PO Q6H PRN (Reason: pain) 7 Days Qty: 28 0RF cyclobenzaprine 10 mg tablet 10 mg PO TID 7 Days Qty: 21 0RF oxycodone-acetaminophen [Endocet] 5-325 mg tablet 1 tab PO Q6H 7 Days Qty: 28 0RF Primary Care Provider: Carina Dominguez NP Referrals: Keyon Bhardwaj DPM [Med Staff - Active Staff] - Keep Sang appointment Carina Dominguez NP, [employer]IEF-[employer] [Primary Care Provider] - Disposition Disposition: Home, Self Care
[2024-02-18 13:56] VITALS: BP 117/59; PULSE 67; RESP 15; TEMP 36.2; O2SAT 99
== END 2024-02-18 13:58 | disposition home or self-care (01) ==
PROVIDERS: Emergency Provider Emergency Medicine; PCP Nurse Practitioner Family; Visit Provider Emergency Medicine
DX: M76.61 Achilles tendinitis, right leg (principal); I10 Essential (primary) hypertension; E78.00 Pure hypercholesterolemia, unspecified; F17.210 Nicotine dependence, cigarettes, uncomplicated; Z79.82 Long term (current) use of aspirin; Z79.899 Other long term (current) drug therapy
CPT/HCPCS: 99282

== ENCOUNTER → 2024-02-24 | Outpatient (CLI) | payer BC, SELFPAY ==
--- NOTE | 2024-02-24 12:27 | MRI_ITS ---
STUDY: MRI RIGHT ANKLE WITHOUT CONTRAST REASON FOR EXAM: Male, 38 years old. Right Achilles tendinitis. TECHNIQUE: Standardized fat and water weighted pulse sequences were obtained in all 3 orthogonal planes. COMPARISON: None. FINDINGS: Normal subcutis adipose space. There is minimal posterior tibialis tenosynovitis (axial T2 series 4 images 12-23). Intact posterior tibialis tendon. Normal flexor digitorum longus tendon. Normal flexor hallucis longus tendon. Normal peroneus longus and brevis tendons. Normal tibialis anterior tendon. Normal extensor hallucis longus tendon. Normal extensor digitorum longus tendons. There is fusiform tendinosis of the Achilles tendon located between 5 to 7 cm above its distal insertion, measuring up to 8 mm in greatest AP thickness (sagittal series 9 and 10, image 9). There is no focal Achilles tendon tear. Normal plantar fascia. Normal plantar calcaneal tubercles. Normal intrinsic muscles of the rearfoot. Normal distal tibiofibular syndesmotic ligamentous complex. Normal lateral ligamentous complex. Normal subtalar ligaments and sinus tarsi. Normal deltoid ligamentous complexes. Normal plantar calcaneonavicular (spring) ligament. Normal tibiotalar articulation. Normal talar dome. Normal subtalar articulations. Normal talonavicular articulation. Normal calcaneocuboid articulation. Normal navicular-cuneiform articulations. MRI/Lower Ext Joint Only (Routine) IMPRESSION: Fusiform tendinosis of the Achilles tendon located between 5 to 7 cm above its distal insertion, measuring up to 8 mm in greatest AP thickness. No focal Achilles tendon tear. Minimal posterior tibialis tenosynovitis. Electronically Signed: Juanjose Rodgers MD at 14:24 EDT ,
== END | disposition home or self-care (01) ==
LOC: MRI 12:18
PROVIDERS: PCP Nurse Practitioner Family; Referring Provider Podiatrist; Visit Provider Podiatrist
DX: M76.61 Achilles tendinitis, right leg (principal)
CPT/HCPCS: 73721

== ENCOUNTER 2024-05-25 11:56 | Emergency (ER) | payer BC, SELFPAY ==
[2024-05-25 11:56] VITALS: BP 150/119; PULSE 101; RESP 20; O2SAT 93
[2024-05-25 11:57] VITALS: BP 144/113; PULSE 100; RESP 22; TEMP 37.2; O2SAT 95; BMI 29.3
--- NOTE | 2024-05-25 12:06 | EX.ED.DYSGE1 ---
HPI <ANAND Amin - Last Filed: 05/25/24 14:06> History of Present Illness Chief Complaint: Shortness of Breath Narrative Narrative: 38-year-old male with past medical history of hypertension presents with 5 days of fever, chills, sore throat, productive cough, nausea and diarrhea. The day it started he saw his primary care doctor and was prescribed amoxicillin and a cough medication but this has not helped. He feels short of breath with walking. No chest pain. He states his temperatures ranged between 97-100 and is having chills and sweats. He is drinking fluids. He typically smokes 5 cigarettes daily and denies history of asthma or COPD. He went to urgent care today who recommended he come to the ED for chest x-ray and viral testing. ON LICENSE OF [facility] <ANAND Amin - Last Filed: 05/25/24 14:06> ON LICENSE OF [facility] Medical History Arthritis Gastric reflux High cholesterol Hypertension Loose, teeth Migraine headache Smoker Wears glasses Home Medications ?Medication ?Instructions ?Recorded ?Last Taken ?Type atorvastatin 10 mg tablet 10 mg PO 149912/26/23 12/29/23 History citalopram 10 mg tablet 10 mg PO 1500 12/26/23 12/29/23 History diclofenac sodium 50 mg 50 mg PO 149912/26/23 12/29/23 History tablet,delayed release famotidine 20 mg tablet 20 mg PO 1500 12/26/23 12/29/23 History fluticasone propionate 50 2 spray intranasal 149912/26/23 Unknown History mcg/actuation nasal spray,suspension hydrochlorothiazide 25 mg tablet 25 mg PO 149912/26/23 12/29/23 History lisinopril 20 mg tablet 20 mg PO 1500 12/26/23 12/29/23 History meloxicam 15 mg tablet 15 mg PO 1500 12/26/23 12/29/23 History omeprazole 40 mg capsule,delayed 40 mg PO DAILY 12/26/23 12/29/23 History release topiramate 200 mg tablet 200 mg PO 1500 12/26/23 12/29/23 History ascorbic acid (vitamin C) 1,000 mg 1 g PO DAILY 90 days #90 tabs 12/30/23 Unknown Rx tablet (Vitamin C) aspirin 81 mg tablet,delayed 81 mg PO DAILY 30 days #30 tabs 12/30/23 Unknown Rx release calcium carbonate 500 mg-vitamin 1 tab PO DAILY 90 days #90 tabs 12/30/23 Unknown Rx D3 15 mcg (600 unit) tablet (Os-Ramone 500 + D3) cyclobenzaprine 10 mg tablet 10 mg PO TID muscle spasm 7 days 12/30/23 Unknown Rx #21 tabs docusate sodium 100 mg capsule 100 mg PO DAILY 10 days #10 caps 12/30/23 Unknown Rx (Colace) oxycodone-acetaminophen 5 mg-325 1 tab PO Q6H pain 7 days #28 tabs 12/30/23 Unknown Rx mg tablet (Endocet) cyclobenzaprine 10 mg tablet 10 mg PO TID muscle spasm 7 days 01/05/24 Unknown Rx #21 tabs oxycodone-acetaminophen 5 mg-325 1 tab PO Q6H PRN pain 7 days #28 01/05/24 Unknown Rx mg tablet (Endocet) tabs oxycodone-acetaminophen 5 mg-325 1 tab PO Q6H 7 days #28 tabs 01/13/24 Unknown Rx mg tablet (Endocet) oxycodone-acetaminophen 5 mg-325 1 tab PO Q6H PRN PRN Pain 3 days 02/18/24 Unknown Rx mg tablet #12 TABLETS gabapentin 300 mg capsule 300 mg PO DAILY 30 days #30 caps 03/28/24 Unknown Rx albuterol sulfate 90 mcg/actuation 2 puff inhalation Q4H PRN PRN 05/25/24 Unknown Rx aerosol inhaler Wheezing #6.7 grams Allergy/AdvReac Type Severity Reaction Status Date / Time No Known Allergies Allergy Verified 05/25/24 11:56 Surgical History (Updated 12/26/23 @ 12:25 by Judi Sanz) History of cholecystectomy History of repair of left rotator cuff History of hernia surgery Social History Smoking Status: Current every day smoker tobacco type: cigarettes ROS <ANAND Amin - Last Filed: 05/25/24 14:06> ROS ED ROS Narrative Constitutional: Positive for fever, chills, malaise. ENT: Positive for sore throat. CVS: Negative for chest pain, syncope. Respiratory: Positive for shortness of breath, cough. GI: Positive for nausea, diarrhea. No vomiting, abdominal pain. Neuro: Negative for headache. EXAM <ANAND Amin - Last Filed: 05/25/24 14:06> Physical Exam Narrative Exam Narrative: CONST: Patient sitting in no acute distress. EYES: Normal inspection. ENT: Normal inspection, moist mucous membranes. NECK: Normal inspection. No meningismus. RESP: No respiratory distress, CTAB. CVS: Regular rate and rhythm, no murmur, no gallop. ABD: Soft and nontender, no guarding or rebound, nondistended. SKIN: Color normal, no rash, warm, dry, intact. EXTREMITIES: Normal appearance, no pedal edema. NEURO: Alert and answering questions appropriately. PSYCH: Normal affect. Const Vital Signs: 05/25/24 11:56 05/25/24 11:57 05/25/24 12:14 Temperature 99 F Temperature Source Temporal Pulse Rate 101 H 100 Respiratory Rate 20 H 22 H Respiratory Effort Normal Non-Labored Respiratory Depth Normal Respiratory Pattern Normal Blood Pressure 150/119 H 144/113 H Blood Pressure Mean 129 123 Pulse Ox 93 95 Oxygen Delivery Method Room Air Room Air Room Air <Dr. Perry Almeida MD - Last Filed: 05/25/24 12:59> Physical Exam Const Vital Signs: 05/25/24 11:56 05/25/24 11:57 05/25/24 12:14 Temperature 99 F Temperature Source Temporal Pulse Rate 101 H 100 Respiratory Rate 20 H 22 H Respiratory Effort Normal Non-Labored Respiratory Depth Normal Respiratory Pattern Normal Blood Pressure 150/119 H 144/113 H Blood Pressure Mean 129 123 Pulse Ox 93 95 Oxygen Delivery Method Room Air Room Air Room Air MDM <ANAND Amin - Last Filed: 05/25/24 14:06> [facility] Narrative Medical decision making narrative: Differential: Viral syndrome versus pneumonia Patient has had 5 days of fever and chills, sore throat, cough, nausea and diarrhea. He has been taking amoxicillin without improvement. He appears ill but nontoxic. Heart rate is around 100, temp 99 F, 93% or above on room air. His exam overall is benign with no signs of strep pharyngitis, otitis media, bacterial sinusitis, meningitis, or clinical pneumonia. CXR shows no acute process and viral swab for COVID/flu/RSV is negative. With this constellation of symptoms I suspect a viral syndrome and further antibiotics are not indicated. I prescribed an albuterol inhaler as he has a history of smoking and discussed [id number] symptomatic care. He was discharged in stable condition. Radiography Diagnostic Testing: Clinical Impression(s) from Imaging Studies Chest X-Ray 05/25/24 12:25 IMPRESSION: No radiographic evidence of acute cardiopulmonary disease. Electronically Signed: Nitish Edge MD at 13:18 EDT , ED attending interpretation of 2 view chest x-ray shows normal heart size, no evidence of infiltrate. <Dr. Perry Almeida MD - Last Filed: 05/25/24 12:59> MDM Radiography Diagnostic Testing: Clinical Impression(s) from Imaging Studies Chest X-Ray 05/25/24 12:25 IMPRESSION: No radiographic evidence of acute cardiopulmonary disease. Electronically Signed: Nitish Edge MD at 13:18 EDT , Additional Tests and Interventions Additional Tests or Interventions: I have personally performed a face to face assessment of the patient and have reviewed the YOLA Note. I performed a substantive portion of the visit including all aspects of the following. My torres findings include: History is 5 days of cough and some shortness of breath due to wheezing no history of asthma or COPD. Some low-grade temperatures. Nasal congestion no earache, does have a sore throat. Exam is mild bilateral inspiratory wheezes without rales or rhonchi. No respiratory distress. No cervical lymphadenopathy. No posterior pharyngeal asymmetry, exams, or trismus. Medical Decison Making agree with viral swab, 2 view chest x-ray which is negative for pneumonia my interpretation. If viral swab is negative suspect viral etiology will prescribe albuterol inhaler for symptomatic treatment no antibiotics indicated. Other additions or changes: [None] Discharge Plan Triage Chief Complaint: Shortness of Breath ED Midlevel Provider: Jennie Guillory ED Provider: Perry Almeida Dx/Rx/DC Orders Clinical Impression: Acute viral syndrome Instructions: ED URI, Viral, No Abx (Adult) Prescriptions: New albuterol sulfate 90 mcg/actuation HFA aerosol inhaler 2 puff inhalation Q4H PRN PRN (Reason: Wheezing) Qty: 6.7 0RF No Action lisinopril 20 mg tablet 20 mg PO 1500 hydrochlorothiazide 25 mg tablet 25 mg PO 1500 atorvastatin 10 mg tablet 10 mg PO 1500 citalopram 10 mg tablet 10 mg PO 1500 diclofenac sodium 50 mg tablet,delayed release (DR/EC) 50 mg PO 1500 famotidine 20 mg tablet 20 mg PO 1500 fluticasone propionate 50 mcg/actuation spray,suspension 2 spray INTRANASAL 1500 meloxicam 15 mg tablet 15 mg PO 1500 omeprazole 40 mg capsule,delayed release(DR/EC) 40 mg PO DAILY topiramate 200 mg tablet 200 mg PO 1500 oxycodone-acetaminophen [Endocet] 5-325 mg tablet 1 tab PO Q6H 7 Days Qty: 28 0RF aspirin 81 mg tablet,delayed release (DR/EC) 81 mg PO DAILY 30 Days Qty: 30 0RF docusate sodium [Colace] 100 mg capsule 100 mg PO DAILY 10 Days Qty: 10 0RF cyclobenzaprine 10 mg tablet 10 mg PO TID 7 Days Qty: 21 0RF calcium carbonate-vitamin D3 [Os-Ramone 500 + D3] 500 mg-15 mcg (600 unit) tablet 1 tab PO DAILY 90 Days Qty: 90 0RF ascorbic acid (vitamin C) [Vitamin C] 1,000 mg tablet 1 g PO DAILY 90 Days Qty: 90 0RF oxycodone-acetaminophen [Endocet] 5-325 mg tablet 1 tab PO Q6H PRN (Reason: pain) 7 Days Qty: 28 0RF cyclobenzaprine 10 mg tablet 10 mg PO TID 7 Days Qty: 21 0RF oxycodone-acetaminophen [Endocet] 5-325 mg tablet 1 tab PO Q6H 7 Days Qty: 28 0RF gabapentin 300 mg capsule 300 mg PO DAILY 30 Days Qty: 30 0RF Rx Instructions: Take 1 capsule as a single dose in the evening for 30 days. oxycodone-acetaminophen [oxycodone-acetaminophen] 5-325 mg tablet 1 tab PO Q6H PRN PRN (Reason: Pain) 3 Days Qty: 12 0RF Primary Care Provider: Carina Dominguez NP Referrals: Carina Dominguez [employer] SAL[employer] TRAINEE, [employer] [Primary Care Provider] - Activity Restrictions/Additional Instructions: Your symptoms are consistent with a viral illness. Use the inhaler as needed. Continue Tylenol and Motrin for fever or pain, drink plenty of fluids, you can take [id number] cough medication such as Delsym or Robitussin. Print Language: Barbadian Disposition Disposition: Home, Self Care
[2024-05-25] MEDS: Acetaminophen 500 MG Tablet 1000 MG PO (12:11)
[2024-05-25 12:14] VITALS: O2SAT 97
--- NOTE | 2024-05-25 12:25 | RAD_ITS ---
INDICATION: cough EXAMINATION/TECHNIQUE: X-RAY - XR Chest 2 Views COMPARISON: No relevant prior comparison study available FINDINGS: LINES/DEVICES: None. LUNGS: No consolidation, edema or effusion. No pneumothorax. MEDIASTINUM AND CARDIOVASCULAR STRUCTURES: Cardiac silhouette not enlarged. Central airways and mediastinal contour are unremarkable. BONES AND SOFT TISSUES: Unremarkable. RAD/Chest PA and Lateral IMPRESSION: No radiographic evidence of acute cardiopulmonary disease. Electronically Signed: Nitish Edge MD at 13:18 EDT ,
[2024-05-25 14:28] VITALS: BP 124/69; PULSE 72; RESP 15; TEMP 36.2; O2SAT 99
== END 2024-05-25 14:30 | disposition home or self-care (01) ==
PROVIDERS: Emergency Provider Emergency Medicine; PCP Nurse Practitioner Family; Visit Provider Emergency Medicine
DX: B34.9 Viral infection, unspecified (principal); R19.7 Diarrhea, unspecified; R06.02 Shortness of breath; Z11.52 Encounter for screening for COVID-19; E78.00 Pure hypercholesterolemia, unspecified; I10 Essential (primary) hypertension; R11.0 Nausea; K21.9 Gastro-esophageal reflux disease without esophagitis; F17.210 Nicotine dependence, cigarettes, uncomplicated; Z79.82 Long term (current) use of aspirin; Z79.899 Other long term (current) drug therapy
CPT/HCPCS: 71046; 87631; 99282

== ENCOUNTER → 2024-08-03 | Outpatient (CLI) | payer BC, SELFPAY ==
--- NOTE | 2024-08-03 12:40 | RAD_ITS ---
STUDY: X-RAY - RIGHT ELBOW REASON FOR EXAM: Male, 38 years old. Pain and swelling TECHNIQUE: 3 view(s) of the elbow. COMPARISON: None. FINDINGS: Normal visualized humerus, radius and ulna. Normal radiocapitellar and ulnotrochlear articulations. The soft tissue structures are unremarkable. RAD/Elbow min 3 Views IMPRESSION: Normal x-ray examination of the elbow. Electronically Signed: Edvin Mullen MD at 12:59 EDT ,
== END | disposition home or self-care (01) ==
LOC: MTRAD 12:40
PROVIDERS: PCP Nurse Practitioner Family; Referring Provider Physician Assistant Surgical; Visit Provider Physician Assistant Surgical
DX: S59.901A Unspecified injury of right elbow, initial encounter (principal); X58.XXXA Exposure to other specified factors, initial encounter
CPT/HCPCS: 73080

== ENCOUNTER 2024-10-01 11:04 | Day surgery (SDC) | payer BC, SELFPAY ==
[2024-09-29 07:31] LABS: Hemoglobin A1c 5.2 % (3.8-5.6)
[2024-09-29 07:39] LABS: Magnesium 2.2 mg/dL (1.6-2.6)
[2024-10-01] VITALS (9 sets, daily range): BP systolic 142–166; BP diastolic 95–107; PULSE 69–83; RESP 12–18; TEMP 36.3–37.7; O2SAT 93–98; BMI 30.8
[2024-10-01 08:22] LABS: Vitamin D,25 Hydroxy 16.2 ng/mL
[2024-10-01] MEDS: Lactated Ringers 1,000 ML 15 ML IV (11:58)
[2024-10-01] MEDS: Magnesium 1 GM over 15 mins IV (11:59)
[2024-10-01] MEDS: Acetaminophen 500 MG Tablet 1000 MG PO (12:00)
[2024-10-01] MEDS: Gabapentin 600 MG Tablet PO (12:00)
--- NOTE | 2024-10-01 12:26 | PCM.PRE.AN2 ---
ASA Classification* ASA Classification ASA Classification: 2 Assessment & Plan Anesthesia* Anesthesia Assessment Anesthesia Assessment: Discussed sedation and/or anesthesia options, risks, benefits, and alternatives with patient/parents/legal guardian/POA. Questions invited. The patient/parents/legal guardian/POA seems to understand and agrees to proceed with anesthesia plan. Reviewed the physical assessment, medical history, allergy history and patient home medications list prior to surgery/procedure/anesthetic and documented any changes. Performed airway and anesthesia risk assessments. Anesthesia Type Anesthesia Type: General and Block (Patient is consented for femoral block.) History Source History Obtained from:: Patient and Chart Anesthesia Focused Assessment* Temperature: 99.8 F Pulse Rate: 69 Blood Pressure: 151/104 Respiratory Rate: 16 Pulse Ox: 97 Oxygen Delivery Method: Room Air Airway Assessment Mouth opens: 2 cm Mallampati Score: I Teeth Condition: Missing (Patient has several missing teeth. Rest are tight.) Neck Range of motion (ROM): Full ROM Focused Labs Anesthesia Preop lab: CBC WBC 7.3 K/mm3 (4.4-11.0) 08/04/19 09:55 RBC 5.43 M/mm3 (4.6-6.2) 08/04/19 09:55 Hgb 15.9 g/dL (13.0-16.5) 08/04/19 09:55 Hct 47.5 % (40-54) 08/04/19 09:55 Plt Count 251 K/mm3 (150-450) 08/04/19 09:55 CHEMISTRY Potassium 3.9 mmol/L (3.5-5.1) 08/04/19 09:55 Sodium 139 mmol/L (136-145) 08/04/19 09:55 Magnesium 2.2 mg/dL (1.6-2.6) 09/29/24 06:58 BUN 15 mg/dL (7-18) 08/04/19 09:55 Creatinine 0.94 mg/dL (0.70-1.30) 08/04/19 09:55 Glucose 113 mg/dL (74-106) H 08/04/19 09:55 POC Glucose 93 mg/dL (74-106) 12/30/23 07:06 COAG Pre-Assessment Diagnosis/Proposed Procedure Planned Operative Procedure(s): (R) Right Achilles tendon debridement and repair, Neuroplasty of the right leg, possible Flexor hallucis longus transfer Anesthesia History Anesthesia History - talent development consultant: Anesthesia History - talent development consultant Hx Hospitalization No 09/28/24 15:04 Any Problems With Anesthesia No 09/28/24 15:04 Cholinesterase deficiency No 09/28/24 15:04 You/Your Family Experience No 09/28/24 15:04 fever (hyperthermia) with Relationship Recent Exposure to Contagious No 10/01/24 11:41 Disease Does patient have nerve No 09/28/24 15:04 stimulator Patient instructed to have device shut off --Does patient have Pacemaker No 10/01/24 11:41 or ICD? When Was Last Pacemaker Check QUESTION #4 FULL TEXT: You/Your Family Experience fever (hyperthermia) with Anesthesia Last Oral Intake Last Oral intake: Last Oral Intake NPO since 18:00 10/01/24 11:41 Meds taken in AM with sips of No 10/01/24 11:41 water? Meds patient instructed to take am of surgery PONV PONV - talent development consultant: PONV - talent development consultant Female No 09/28/24 15:04 HX of Motion Sickness No 09/28/24 15:04 HX of N/V After Surgery No 09/28/24 15:04 Non-Smoker No 09/28/24 15:04 Duration of Surgery greater Yes 09/28/24 15:04 than 60 minutes Number of Risk Factors 1 09/28/24 15:04 PONV Score Low Risk 09/28/24 15:04 Height & Weight Height & Weight: Anesthesia: Height & Weight Height 5 ft 5 in 10/01/24 11:41 Weight: 84 kg 10/01/24 11:41 Body Mass Index (BMI) 30.8 10/01/24 11:41 Respiratory Assessment Respiratory Assessment - talent development consultant: Respiratory Tract Infection Hx - talent development consultant Hx Respiratory Tract Infection No 09/28/24 15:04 STOP Sleep Apnea STOP Sleep Apnea - talent development consultant: STOP Sleep Apnea - talent development consultant Hx Hypertension Yes: PER PT, CONTROLLED ON 09/28/24 15:04 MEDS Hx Sleep Apnea No 09/28/24 15:04 CPAP BIPAP Do you snore loudly (louder No 09/28/24 15:04 than talking or can be heard Do you often feel tired/ No 09/28/24 15:04 fatigued/ sleepy during daytime? Has anyone observed you stop No 09/28/24 15:04 breathing during sleep? STOP Results Negative 09/28/24 15:04 QUESTION #5 FULL TEXT : Do you snore loudly (louder than talking or can be heard through closed doors)? Tobacco Use History Tobacco Use History - talent development consultant: Tobacco Use History - talent development consultant Tobacco Use Smoking Status Current every day smoker 09/28/24 15:04 Hx Tobacco Use Yes 09/28/24 15:04 Years Smoking Packs Smoked per Day Smoking Cessation Date was within the last 15 years Hx Smoking Cessation Date Hx Smoking Cessation No 09/28/24 15:04 Counseling Any additional information?: Yes Smoking Status: Current every day smoker (Patient smoked today.) Hematologic Medial History Hematologic Hx - talent development consultant: Hematologic Medical Hx - cooker sulfate Hx of Blood Transfusion No 09/28/24 15:04 Hx of Transfusion in last 3 No 09/28/24 15:04 Months Date of Last Transfusion (if within last 3 months) Ever experience any problems No 09/28/24 15:04 with transfusion(s)? Specify any problems Hx of Preganancy in last 3 N/A 09/28/24 15:04 Months Nurse Filling Out Transfusion NBUCHER 09/28/24 15:04 & Questions: Date: 09/28/24 09/28/24 15:04 Time: 15:04 09/28/24 15:04 Patient unable to answer at this time (ie. confused, unrespo /Reproduction History /Reproductive History - talent development consultant: /Reproductive Hx- talent development consultant Hx Now Gestational Age (in weeks): EDC: Hx Hx Para Hx Section SAB Active Medications Active Medications: Current Medications Generic Name Dose Route Start Last Admin Trade Name Freq PRN Reason Stop Dose Admin Acetaminophen 1,000 mg 10/01/24 13:30 10/01/24 12:00 Acetaminophen 500 Mg Tablet PO 10/01/24 13:31 1,000 mg X1 ONE Administration Gabapentin 600 mg 10/01/24 13:30 10/01/24 12:00 Gabapentin 600 Mg Tablet PO 10/01/24 13:31 600 mg X1 ONE Administration Cefazolin Sodium 2 gm/ N/A 20 mls @ 400 mls/hr 10/01/24 13:30 IV 10/01/24 13:32 PREOP ONE Lactated Ringer's 1,000 mls @ 15 mls/hr 10/01/24 11:30 10/01/24 11:58 IV 10/07/24 00:49 15 mls/hr .Q48H ROSETTA Administration Protocol Insulin Human Lispro 1 - 6 unit 10/01/24 13:30 Insulin Lispro 100 Unit/Ml Insuln.Pen SC 10/01/24 19:30 Q4H PRN PRN BG>/= 180, SEE PROTOCOL Protocol PFSH Medical History Wears glasses Loose, teeth Arthritis High cholesterol Migraine headache Gastric reflux Hypertension Smoker Home Medications ?Medication ?Instructions ?Recorded ?Last Taken ?Type atorvastatin 10 mg tablet 10 mg PO 1500 12/26/23 12/29/23 History citalopram 10 mg tablet 10 mg PO 1500 12/26/23 12/29/23 History famotidine 20 mg tablet 20 mg PO 1500 12/26/23 12/29/23 History hydrochlorothiazide 25 mg tablet 25 mg PO 1500 12/26/23 12/29/23 History omeprazole 40 mg capsule,delayed 40 mg PO DAILY 12/26/23 12/29/23 History release gabapentin 300 mg capsule 300 mg PO DAILY 30 days #30 caps 03/28/24 Unknown Rx albuterol sulfate 90 mcg/actuation 2 puff inhalation Q4H PRN PRN 05/25/24 Unknown Rx aerosol inhaler Wheezing #6.7 grams amlodipine 5 mg tablet 5 mg PO DAILY 09/28/24 09/30/24 History Allergy/AdvReac Type Severity Reaction Status Date / Time No Known Allergies Allergy Verified 09/28/24 15:00 Surgical History History of foot surgery (12/30/23) History of cholecystectomy History of repair of left rotator cuff History of hernia surgery Social History Smoking Status: Current every day smoker (Patient smoked today.) tobacco type: cigarettes Review of Systems (Anesthesia) ROS Narrative System reviewed and no additional complaints, except as documented.
[2024-10-01] MEDS: Bupivacaine Mpf 0.5% 30 ML VIAL (13:08)
--- NOTE | 2024-10-01 13:30 | TESH_PTH ---
PATIENT: SEBASTIÁN DAVENPORT [place] [facility] [id number] AGE/SX: 39/M ROOM: RE10/01/[address]: Dr. Keyon Bhardwaj DPM : 1985 BED: DIS: 10/01/2024 SPEC #: [id number] RECD: 10/02/24 09:12 STATUS: BLADE RENelly #: [id number] GÉNESIS: 10/01/24 13:[address]: Keyon Bhardwaj DEPT: SURGICAL PATHOLOGY RECD BY: Kenya Hernandez ENTERED: 10/02/24 10:10 SP TYPE: TENDON OTHR DR: Carina Dominguez, MANAGER SOCIAL SERVICES-C Tissues: Tendon and tendon sheath, NOS Procedures: Surgery Specimen Level III HEADER OPERATION: Right Achilles tendon debridement and repair PRE-OP DIAGNOSIS: Soft tissue mass to the Achilles tendon, Achilles tendonitis right lower leg TISSUE SUBMITTED: Achilles tendonitis MICROSCOPIC DIAGNOSIS Achilles tendon, excision: Dense fibroconnective tissue with reactive changes. SJ.mr 10/03/2024 MICROSCOPIC DESCRIPTION Slides are reviewed. GROSS DESCRIPTION Received in fixative is one container labeled with the patient's name and designated Achilles tendonitis. The specimen consists of a piece of benz indurated tissue measuring 3.5 x 0.7 x 0.4cm. Also present in the container is one small piece of benz indurated tissue measuring 1.0 x 0.5 x 0.2cm. The entire specimen is submitted in one cassette. 10/02/2024 TC:5 CPT:34633
[2024-10-01] MEDS: Cefazolin 2 GM in Syringe IV (13:49)
--- NOTE | 2024-10-01 13:54 | PCM.OPRPT ---
Problems Associated Problem List Diagnoses (1) Achilles tendinitis, right leg: (2) Pain in right lower leg: (3) Neuralgia and neuritis, unspecified: Operative Report (Standard) Operative Information Surgery/Procedure Performed: 1. Achilles tendon debridement repair, right lower extremity 2. Neuroplasty, right lower extremity Surgeon: Keoyn Bhardwaj Date of Procedure: 10/01/24 Procedure Start Time: 14:15 Procedure Stop Time: 15:03 Pre-Operative Diagnosis: 1. Achilles tendinitis, right lower extremity 2. Pain, right lower extremity 3. Neuralgia/neuritis, right lower extremity Post-Operative Diagnosis: 1. Achilles tendinitis, right lower extremity 2. Pain, right lower extremity 3. Neuralgia/neuritis, right lower extremity Select all DRAINS/GRAFTS/IMPLANTS that apply: Graft Graft details: Vega-Chi graft jacket Type of Anesthesia: Block,Regional, General and Local Special Medications: Per anesthesia Estimated Blood Loss: 20 mL Fluids Replaced: Per anesthesia Specimen collected: Yes Description of specimen(s) removed: Right lower extremity Achilles tendinitis versus tendinosis Description of surgery: Indications For Operation: Mr. Cordova is a 39-year-old male who was admitted to [facility] for right lower extremity Achilles tendon debridement and repair secondary to chronic tendinosis. The patient was seen in private office where he had multiple office visit with conservative treatment all exhausted. The patient did exhausted several treatment consisting of offloading stretching as well as oral nonsteroid anti-inflammatories and oral steroids. The patient did receive advanced imaging, MRI, that showed evidence of xanthoma with no evidence of tear to the tendon. After multiple visits the patient elected to move forward with surgical intervention since oral pain medication was not helping nor was home physical therapy that he exhausted. The patient had surgical consultation with all risk and benefits discussed with the great detail. The patient and opted to move forward with elective right lower extremity surgery. Due to increase in size to the xanthoma of the Achilles tendon we will move forward with surgery to the right Achilles tendon with the procedure stated above to help relieve the patient's constant pain.. The nature of the problem, anticipated procedures, postop recovery/convalences and risk/complications include but not limited to infection, wound healing complications, digital amputation, hypertrophic scarring, numbness, tingling, chronic pain, CRPS, over and under correction, recurrence of deformity, DVT and or PE and the need for further surgery have been discussed in great detail with the patient. All questions have been answered to the patient's satisfaction. There are no guarantees given as to the outcome of the procedure. Description of Procedure: Under mild sedation, the patient was brought into the operating room and placed on the operating table in a prone position. Once the patient was under general anesthesia with endotracheal tube, the right lower extremity was blocked using approximately 10 cc in V-block fashion of 0.5% Marcaine plain to the proximal Achilles tendon area, the patient will see of a popliteal block in the PACU after the case provided by anesthesia. Please see anesthesia note for further detail.. Next, a well-padded thigh tourniquet was applied to the right lower extremity. Next, the right lower extremity was prepped and draped in normal aseptic manner. Next, a timeout was then undertaken verifying the correct patient, extremity, visibility of preoperative markings, availability of the equipment. Next, attention was directed to the right lower extremity. Using a 6 inch Esmarch, right lower extremity was exsanguinated and elevated to 60 degrees for 1 minute. Procedure #1: Achilles tendon debridement and repair, right lower extremity (CPT code: 12463) Next, attention was directed to the Achilles tendon once the patient was placed in a prone position. Xanthoma/soft tissue mass was located approximately 5 mm proximal to the insertion of the Achilles tendon. The incision was marked out slightly posterior medial to avoid any neurovascular structures to the posterior area around the Achilles tendon. Using a #15 blade a full-thickness incision down to peritenon was made. Continued blunt dissection with Metzenbaum scissors carried down and around the Achilles tendon. Next, using a #15 blade and pickups the peritenon was incised centrally over the Achilles tendon. The peritenon was gently lifted marked and retracted to allow further exposure of the Achilles tendon. The xanthoma was noted approximately anterior medial on the Achilles tendon. The Achilles tendon was essentially divided using a 15 blade. The Achilles tendon was debrided at this time and excess Achilles tendon was passed the back table to be sent off for pathology for gross dissection. Additional debridement on the medial anterior side of the Achilles tendon was also removed and passed the back table to be sent off for pathology again for gross dissection. There is approximately 1.5 cm? of Achilles tendon removed along with the xanthoma. The incision was flushed with copious normal saline. Arrieta test was performed and showed to be negative with intact and functional Achilles tendon. Procedure #2: Neuroplasty, right lower extremity (CPT code: 33573) Next, continued blunt dissection carried down around the sural nerve to decrease any chance of continued neuritis that the patient was having. The sural nerve was identified and freed from all soft tissue contractures. Again the incision was flushed with copious normal saline. The tendon was really attached and repaired using 2-0 FiberWire and running suture technique. Care was taken to bury all knots to decrease any skin irritation. Next using Vega-Chi 2 x 4 cm graft jacket which was sutured in place to decrease adhesions using 3-0 Monocryl. Again, the incision was flushed with copious normal saline. Another Arrieta test was performed and showed to be negative with intact and functional Achilles tendon. The peritenon was reapproximated closed using 3-0 Monocryl in a running locking suture technique. At this time the tourniquet was deflated and reperfusion was noted instantly to the right lower extremity. All bleeders were cauterized and ligated as necessary. The subcutaneous layer was reapproximated closed using strata fix running suture. The skin was reapproximated closed using strata fix running suture. The right lower extremities were cleaned and patted dry. Quarter and Steri-Strips were applied over the skin and held in place and cleansed with Betadine. The incision was dressed with Betadine soaked Adaptic, dry sterile dressing and a 2 layer Vernon AO splint plantarflexed was applied to the right lower extremity. The patient tolerated the procedure and anesthesia well and apparent satisfactory condition and was transported to the PACU for further monitoring prior to discharge home. Vital signs stable and vascular status intact to all digits bilateral. Post Operative Plan: Weightbearing: Nonweightbearing right lower extremity. Full weightbearing left lower extremity. Antibiotics: 2 g Ancef through the IV DVT Prophylaxis: 81 mg aspirin Merrill: None Dressing: Betadine soaked Adaptic, dry sterile dressing, double layer Vernon AO splint plantarflex X-Rays: Post-operative films taken on the operating room. Pain Medication: Percocet 5/325, Flexeril 10 mg Follow-up: Patient will follow-up 1 week to 10 days postop in private office. Please follow-up with your already scheduled appointment time. Surgical Findings: 1. Evidence of 1.5 cm where xanthoma which was removed and passed the back table for pathology. 2. Before reapproximated and repair of Achilles tendon there was a negative Arrieta test that was tested on the operating field. 3. Excellent reapproximation of the Achilles tendon with FiberWire suture. Tram Inspector dish cloth inspector: Yes Supervisor Sleeping Bag Department: Julio Cullen Tasks completed by first line supervisor: Closing, Removing tissue and Other (Injection of 10 cc of 0.5 Marcaine plain) Additional resident programs assistant?: No Complications Complications: No Admit VTE Documentation VTE Present on Admission: No VTE Mechan Device Prophylaxis: SCD's VTE Pharm Prophylaxis ordered?: Yes
--- NOTE | 2024-10-01 15:15 | PCM.POST.ANE ---
Anesthesia: Postop Eval I Current Vital Signs Temperature: 97.7 F Pulse Rate: 77 Blood Pressure: 159/99 Respiratory Rate: 18 Pulse Ox: 95 Oxygen Delivery Method: Room Air Assessment Airway patent: Yes Spontaneous unlabored respirations: Yes Mental status: Awake and Calm nausea: No Vomiting: No Anesthesia Complication: No Fluid Hydration Crystalloid volume administer (ml): 1,200 Total IV fluid infused: 1,200 Progress Note Anesthesia document: Postop Eval 1 completed: Yes
[2024-10-01] MEDS: Ketorolac 30 MG/ML Syringe IV (15:32)
[2024-10-01] MEDS: oxyCODONE 5 MG Tablet PO (16:18)
--- NOTE | 2024-10-02 06:35 | POSTOPAN2_ITS ---
Anesthesia Postop Eval I Sum Postop Eval Completion status Anesthesia document: Postop Eval 1 completed: Yes Anesthesia Postop Eval I Summary Anesthesia Postop Eval I Summary: Anesthesia Postop Eval I: Assessment Summary Airway patent Yes 10/01/24 15:16 SHIFT LAB [email or web address] Spontaneous unlabored Yes 10/01/24 15:16 SHIFT LAB [email or web address].MDOT respirations Mental status Awake,Calm 10/01/24 15:16 SHIFT LAB [email or web address] nausea No 10/01/24 15:16 SHIFT LAB [email or web address] Vomiting No 10/01/24 15:16 SHIFT LAB [email or web address] Anesthesia Postop Eval I: Fluid Summary Crystalloid volume administer 1,200 10/01/24 15:16 SHIFT LAB [email or web address] (ml) Colloids volume administered ( ml) Blood Product volume administered (ml) Total IV fluid infused 1,200 10/01/24 15:16 SHIFT LAB [email or web address] Anesthesia Postop Eval I: Summary Notes Anesthesia Complication No 10/01/24 15:16 SHIFT LAB [email or web address] Anesthesia Complication Comment: Post-operative progress note Anesthesia: Postop Eval II Evaluation Mental status: Awake Pain Level: 0 nausea: No Vomiting: No
--- NOTE | 2024-10-02 06:35 | PCM.POSTANE2 ---
Anesthesia Postop Eval I Sum Postop Eval Completion status Anesthesia document: Postop Eval 1 completed: Yes Anesthesia Postop Eval I Summary Anesthesia Postop Eval I Summary: Anesthesia Postop Eval I: Assessment Summary Airway patent Yes 10/01/24 15:16 COMPUTER [email or web address] Spontaneous unlabored Yes 10/01/24 15:16 COMPUTER [email or web address] respirations Mental status Awake,Calm 10/01/24 15:16 COMPUTER [email or web address] nausea No 10/01/24 15:16 COMPUTER [email or web address] Vomiting No 10/01/24 15:16 COMPUTER [email or web address] Anesthesia Postop Eval I: Fluid Summary Crystalloid volume administer 1,200 10/01/24 15:16 COMPUTER [email or web address] (ml) Colloids volume administered ( ml) Blood Product volume administered (ml) Total IV fluid infused 1,200 10/01/24 15:16 COMPUTER [email or web address] Anesthesia Postop Eval I: Summary Notes Anesthesia Complication No 10/01/24 15:16 COMPUTER [email or web address] Anesthesia Complication Comment: Post-operative progress note Anesthesia: Postop Eval II Evaluation Mental status: Awake Pain Level: 0 nausea: No Vomiting: No
== END 2024-10-01 16:46 | disposition home or self-care (01) ==
LOC: SDC 11:05 → AC 11:06
PROVIDERS: PCP Nurse Practitioner Family; Referring Provider Podiatrist Foot & Ankle Surgery; Visit Provider Podiatrist Foot & Ankle Surgery
PROC: (CPT 27650; principal; 2024-10-01 13:15)
DX: M76.61 Achilles tendinitis, right leg (principal); E75.5 Other lipid storage disorders; G62.9 Polyneuropathy, unspecified; F17.200 Nicotine dependence, unspecified, uncomplicated; Z79.82 Long term (current) use of aspirin; Z79.899 Other long term (current) drug therapy
CPT/HCPCS: 27652; 64708; 01472; 64450; 82306; 83036; 83735; 87077; 87081; 88304; J7120; J2405; J3475

== ENCOUNTER 2025-03-29 09:36 | Emergency (ER) | payer SELFPAY ==
[2025-03-29 09:37] VITALS: BP 190/108; PULSE 79; RESP 19; TEMP 36.7; O2SAT 98; BMI 31.5
--- NOTE | 2025-03-29 10:22 | EX.ED.UPPERE ---
HPI History of Present Illness HPI Narrative: Patient presents with pain to his left elbow and forearm that began yesterday. Patient states he was lifting and carrying some boxes when he felt pain in his left proximal forearm and elbow area. Patient states it is worse with movement. Patient states is better with rest. Patient describes it as a pulling sensation. Patient denies any paresthesias. Patient states he has some weakness in his left hand due to the pain. Patient denies any direct trauma or injury. Chief Complaint: Upper Extremity Injury Informant: patient Occured/Mechanism Mechanism/Context: Yes injury Comment: Lifting and carrying boxes Onset/Context/Timing Onset: Yesterday Timing: Continuous Quality of Pain: - (Pulling sensation) Location: Left proximal forearm and elbow Worsened by: Movement Relieved by: Rest PFSH PFSH Medical History Wears glasses Loose, teeth Arthritis High cholesterol Migraine headache Gastric reflux Hypertension Smoker Home Medications ?Medication ?Instructions ?Recorded ?Last Taken ?Type atorvastatin 10 mg tablet 10 mg PO 1500 12/26/23 12/29/23 History citalopram 10 mg tablet 10 mg PO 1500 12/26/23 12/29/23 History famotidine 20 mg tablet 20 mg PO 1500 12/26/23 12/29/23 History hydrochlorothiazide 25 mg tablet 25 mg PO 1500 12/26/23 12/29/23 History omeprazole 40 mg capsule,delayed 40 mg PO DAILY 12/26/23 12/29/23 History release gabapentin 300 mg capsule 300 mg PO DAILY 30 days #30 caps 03/28/24 Unknown Rx albuterol sulfate 90 mcg/actuation 2 puff inhalation Q4H PRN PRN 05/25/24 Unknown Rx aerosol inhaler Wheezing #6.7 grams amlodipine 5 mg tablet 5 mg PO DAILY 09/28/24 09/30/24 History ascorbic acid (vitamin C) 1,000 mg 1 g PO DAILY 90 days #90 tabs 10/01/24 Unknown Rx tablet (Vitamin C) aspirin 81 mg tablet,delayed 81 mg PO DAILY 30 days #30 tabs 10/01/24 Unknown Rx release calcium 500 mg (as 1 tab PO DAILY 90 days #90 tabs 10/01/24 Unknown Rx carbonate)-vitamin D3 15 mcg (600 unit) tablet (Os-Ramone 500 + D3) cyclobenzaprine 10 mg tablet 10 mg PO TID muscle spasm 7 days 10/01/24 Unknown Rx #21 tabs docusate sodium 100 mg capsule 100 mg PO DAILY 10 days #10 caps 10/01/24 Unknown Rx (Colace) oxycodone-acetaminophen 5 mg-325 1 tab PO Q6H PRN pain 7 days #28 10/01/24 Unknown Rx mg tablet (Percocet) tabs oxycodone-acetaminophen 5 mg-325 1 tab PO Q12H pain 7 days #14 tabs 11/05/24 Unknown Rx mg tablet (Endocet) Allergy/AdvReac Type Severity Reaction Status Date / Time No Known Allergies Allergy Verified 03/29/25 09:37 Surgical History History of foot surgery (12/30/23) History of cholecystectomy History of repair of left rotator cuff History of hernia surgery Social History (Updated 03/29/25 @ 11:[address] Reji Mathur DO) Smoking Status: Current every day smoker tobacco type: cigarettes Electronic Cigarette Use: with nicotine ROS ROS ED Constitutional Constitutional ED: Denies chills or fever(s) Eyes Eyes: Denies blurry vision or change in vision ENT ENT ED: Denies rhinorrhea or sore throat Cardiovascular Cardiovascular: Denies chest pain or palpitations Respiratory/Chest Respiratory/Chest: Denies cough or dyspnea Gastrointestinal Gastrointestinal: Denies nausea or vomiting Genitourinary Genitourinary ED: Denies dysuria or hematuria Musculoskeletal Musculoskeletal: Denies back pain or neck pain Integumentary Denies abscess or rash Neurologic Neurologic: Denies headache(s) or weakness Allergic/Immunologic Allergic/Immunologic ED: Denies mouth swelling or urticaria EXAM Physical Exam Const Vital Signs: 03/29/25 09:37 Temperature 98.1 F Temperature Source Oral Pulse Rate 79 Respiratory Rate 19 H Blood Pressure 190/108 H Blood Pressure Mean 135 Pulse Ox 98 Oxygen Delivery Method Room Air Positive well nourished and well developed General Appearance ED: well developed and NAD HEENT Reports moist mucous membranes Neck full ROM and supple Extremity Extremity Narrative: There is tenderness and mild edema over the lateral aspect of the left proximal forearm and elbow. There is mild tenderness with resisted extension of the left wrist over the lateral epicondyle. Range of motion was limited in all motions of the left elbow and forearm secondary to pain. Radial pulses are equal bilaterally. Sensation was intact to light touch in the radial, median, and ulnar areas. Strength is 5/5 in the radial, median, and ulnar areas. Neuro oriented x3, CN's II-XII intact bilaterally, moves all extremities, no focal motor deficits and no sensory deficits noted Sensorium / Orientation: alert Motor Exam: strength 5/5 throughout Psych mental status grossly normal MDM MDM MDM Narrative Medical decision making narrative: Differential diagnosis includes occult fracture, tendinitis, lateral epicondylitis, and muscle strain. X-rays of the left elbow will be obtained to assess for occult fracture. Radiography Diagnostic Testing: X-rays of the left elbow were obtained. There are 3 views. On my independent interpretation, there is no acute fracture. There is no joint effusion. Radiologist also interpreted the x-rays and agrees. Treatment and Re-Evaluation Narrative: Patient was advised of his findings. Patient was instructed to use ice to the area. Patient was instructed to take ibuprofen as needed for pain. Patient was instructed to follow-up with his primary care physician in 5 to 7 days. Patient understood and was agreeable with the plan. All questions were answered. Discharge Plan Triage Chief Complaint: Upper Extremity Injury ED Provider: Reji Mathur Dx/Rx/DC Orders Clinical Impression: Muscle strain of left forearm Instructions: ED Muscle Strain, Extremity Prescriptions: No Action hydrochlorothiazide 25 mg tablet 25 mg PO 1500 atorvastatin 10 mg tablet 10 mg PO 1500 citalopram 10 mg tablet 10 mg PO 1500 famotidine 20 mg tablet 20 mg PO 1500 omeprazole 40 mg capsule,delayed release(DR/EC) 40 mg PO DAILY gabapentin 300 mg capsule 300 mg PO DAILY 30 Days Qty: 30 0RF Rx Instructions: Take 1 capsule as a single dose in the evening for 30 days. albuterol sulfate 90 mcg/actuation HFA aerosol inhaler 2 puff inhalation Q4H PRN PRN (Reason: Wheezing) Qty: 6.7 0RF amlodipine 5 mg tablet 5 mg PO DAILY oxycodone-acetaminophen [Percocet] 5-325 mg tablet 1 tab PO Q6H PRN (Reason: pain) 7 Days Qty: 28 0RF aspirin 81 mg tablet,delayed release (DR/EC) 81 mg PO DAILY 30 Days Qty: 30 0RF docusate sodium [Colace] 100 mg capsule 100 mg PO DAILY 10 Days Qty: 10 0RF cyclobenzaprine 10 mg tablet 10 mg PO TID 7 Days Qty: 21 0RF calcium carbonate-vitamin D3 [Os-Ramone 500 + D3] 500 mg-15 mcg (600 unit) tablet 1 tab PO DAILY 90 Days Qty: 90 0RF ascorbic acid (vitamin C) [Vitamin C] 1,000 mg tablet 1 g PO DAILY 90 Days Qty: 90 0RF oxycodone-acetaminophen [Endocet] 5-325 mg tablet 1 tab PO Q12H 7 Days Qty: 14 0RF Primary Care Provider: Carina Dominguez NP Referrals: Carina Dominguez NP, GARMENT FITTER-C [Primary Care Provider] - 5-7 Days Print Language: Algerian Disposition Disposition: Home, Self Care
--- NOTE | 2025-03-29 10:35 | RAD_ITS ---
EXAM: LEFT ELBOW CLINICAL HISTORY: INJURY. PAIN. PATIENT HEARD A POP WHILE LIFTING. COMPARISON: NO RELEVANT PRIOR TECHNIQUE: AP, LATERAL, AND OBLIQUE. FINDINGS: Bones: No fractures or other osseous abnormalities. Joints: No subluxations or dislocations. Soft tissues: Unremarkable. RAD/Elbow min 3 Views IMPRESSION: No acute osseous or other abnormalities. Reading Location: CASE
[2025-03-29 12:04] VITALS: BP 165/80; PULSE 78; RESP 16; TEMP 36.7; O2SAT 99
== END 2025-03-29 12:06 | disposition home or self-care (01) ==
PROVIDERS: Emergency Provider Emergency Medicine; PCP Nurse Practitioner Family; Visit Provider Emergency Medicine
DX: S56.912A Strain of unspecified muscles, fascia and tendons at forearm level, left arm, initial encounter (principal); X50.0XXA Overexertion from strenuous movement or load, initial encounter; F17.210 Nicotine dependence, cigarettes, uncomplicated
CPT/HCPCS: 73080; 99282